=== PATIENT | female | born 1980 | race Caucasian/White ===

== ENCOUNTER 2017-01-06 19:22 | Emergency (ER) | payer MEDICARE, OTHER ==
[~2017-01-06] VITALS: Ht 172.7 cm; Wt 77.1 kg
[~2017-01-06 19:22] MED LIST: ACET325T21 PO; ASPI-482 PO; CARV12.52 PO; CIPR500T94 PO; CRESTOR10 MG PO; DIVA500T2 PO; ECON15CR TP; FERR-26 PO; FLUT16SP2 NS; GLIM4TAB2 PO; HYDR-2672 PO; HYDR-2678 PO; HYDR-971 PO; HYOS0.12 PO; INSU100I17 SQ; INSU100V8 SQ; LOSA1TAB16 PO; METR250T PO; MULT-246 PO; OLAN10TA3 PO; OMEG500C3 PO; OMEP40CA5 PO; ONDA4TAB7 PO; PANT40TA3 PO; SERT50TA PO; SILV400C TP; SUCR1TAB29 PO; ZOLP10TA PO
[2017-01-06] MEDS ORDERED: HYDROcodon/APAP 7.5/325MG ORAL 15 ML SOLUTION PO ONE (20:15)
[2017-01-06 20:18] VITALS: BP 146/90
--- NOTE | 2017-01-06 20:38 | PHYS DOC ---
Past Medical History Past Medical History: Depression, GERD, Other Additional Past Medical Histor: ulcer, diverticulosis, chronic abd pain Past Surgical History: Appendectomy, Cholecystectomy, Gastric Bypass, Other Additional Past Surgical Histo: hernia, ovarian cyst, low body lift, 3 abd laps , 2 peg tubes,reversal, PORT Alcohol Use: None Drug Use: Marijuana Adult General Chief Complaint Chief Complaint: MULTIPLE TRAUMA/FALL HPI HPI Patient is a 40 year old pleasant female who sustained a fall from standing while attempting to assist her mother move in her room. While in the standing position patient will shifting her mother's weight which she lost her footing landing on her left scapula upper shoulders and neck. Patient since that time his had some increased pain with movement at her neck over C5 C6 C7 C8 and the upper portion of her scapula on the right shoulder. Patient's reason for coming to the ER is that she was not able to tolerate her by mouth medications given the pain and a prior gastric bypass she has over sensitive gag reflex relatively vomited up her sublingual Zofran and her pain medications. She denies any numbness and teething to the upper extremities bilaterally denies any loss of consciousness after the fall. Denies any chest pain, shortness breath, abdominal pain, before after the fall. Patient's pain is described as a dull ache at about a 6 of 10 when at rest about an 8 of 10 with movements or direct pressure. Patient denies a prior injury to the same. Given patient's complaint and focal tenderness exhibited on physical exam I will complete x-rays of her C-spine and T-spine provided oral elixir pain medication and something for her nausea. Review of Systems Review of Systems Constitutional: Denies fever or chills [] Eyes: Denies change in visual acuity, redness, or eye pain [] HENT: Denies nasal congestion or sore throat [] Respiratory: Denies cough or shortness of breath [] Cardiovascular: No additional information not addressed in HPI [] GI: Abdominal pain with nausea and retching that is chronic in nature : Denies dysuria or hematuria [] Musculoskeletal: He does complain of upper neck and back pain over the right scapula Integument: Denies rash or skin lesions [] Neurologic: Denies headache, focal weakness or sensory changes [] Endocrine: Denies polyuria or polydipsia [] Current Medications Current Medications Current Medications Medications (Trade) Dose Ordered Sig/Ben Start Time Stop Time Status Last Admin Dose Admin Acetaminophen/ Hydrocodone Bitart (Lortab 7.5-325/ 15ml Oral Solution) 15 ml 1X ONCE 01/06/17 20:15 01/06/17 20:16 DC 01/06/17 20:16 15 ML Allergies Allergies Allergies Coded Allergies Type Severity Reaction Last Updated Verified diphenhydramine Allergy Severe hallucinations/ams 11/22/16 Yes promethazine Allergy Severe confusion/ams 11/22/16 Yes sumatriptan Allergy Severe ANAPHYLAXIS 11/22/16 Yes haloperidol Allergy Intermediate 11/23/16 Yes morphine Allergy Intermediate HIVES 12/04/16 Yes NSAIDS (Non-Steroidal Anti-Inflamma Adverse Reaction Severe bleeding. 06/12/14 Yes metoclopramide Adverse Reaction Mild 11/15/16 Yes prochlorperazine Adverse Reaction Mild 11/15/16 Yes Physical Exam Physical Exam Impression is hypertension noted on physical exam findings otherwise her vital signs within normal limits. Constitutional: Well developed, well nourished, patient in no apparent distress sitting quietly on the bed reading a nook HENT: Normocephalic, atraumatic, bilateral external ears normal, oropharynx moist, no oral exudates, nose normal. [] Eyes: PERRLA, EOMI, conjunctiva normal, no discharge. [] Neck: Normal range of motion, she does have tenderness to palpation over the midline of C7 C8 with no obvious deformity. Patient as much as felt pain over the lateral aspect of the right trap as well as rhomboid major minor and along the inferior medial portion border of the right scapula. There is mild soft tissue swelling no evidence of external pastor or hematoma. Cardiovascular:Heart rate regular rhythm, no murmur [] Lungs & Thorax: Bilateral breath sounds clear to auscultation [] Abdomen: Bowel sounds normal, soft, no tenderness, no masses, no pulsatile masses. [] Skin: Warm, dry, no erythema, no rash. [] Back: There is tenderness to palpation over the rhomboid major minor was mild soft tissue swelling no obvious hematoma or bony tenderness to palpation with crepitus. Extremities: No tenderness, no cyanosis, no clubbing, ROM intact, no edema. [] Neurologic: Alert and oriented X 3, normal motor function, normal sensory function, no focal deficits noted. [] Psychologic: Patient is a little anxious but normal cognition no focal neurologic deficits on upper extremity exam C5-T1 light touch proprioception intact over each arm bilaterally Current Patient Data Vital Signs Vital Signs Date Time Temp Pulse Resp B/P (MAP) Pulse Ox O2 Delivery O2 Flow Rate FiO2 01/06/17 20:16 16 01/06/17 19:43 98.2 84 155/56 (89) 100 Room Air 98.2 EKG EKG [] Radiology/Procedures Radiology/Procedures [] 3 view thoracic back films demonstrated no occult fracture no compression fracture no subcutaneous air or rib fracture noted. Read by Dr. Rodriguez time on x-rays aren't 205301/06/2017. Straight timed 205001/06/2017 3 view cervical spine series with adequate penetration to C6-C7 C8 demonstrates no occult fracture within the cervical spine alignment of the anterior portion spinous processes within normal limits. There is no compression fracture noted no thorax open mouth ODONTOID to within normal limits and lateral bodies place normal . Course & Med Decision Making Course & Med Decision Making Pertinent Labs and Imaging studies reviewed. (See chart for details) other course the ER evaluation patient was markedly better given pain medications and oral elixir and Zofran. X-rays reviewed by me discussed with patient no cold fractures.Patient tells me that their sumptoms given during CC are improved. We reviewed labs and radiology reports with patient Impression fall from standing upper shoulder/scapular/neck contusion and sprain. Disposition: Discharge home with PCP follow-up given oral pain medications and elixir form and given precautions [] Dragon Disclaimer Dragon Disclaimer This electronic medical record was generated, in whole or in part, using a voice recognition dictation system. Departure Departure Impression: Primary Impression: Chronic abdominal pain Additional Impressions: Nausea and vomiting Neck muscle strain Contusion of back wall of thorax Back contusion Contusion of right back wall of thorax Contusion of upper back Disposition: 01 HOME, SELF-CARE Condition: IMPROVED Referrals: RAJEEV SHAW DO (PCP) Patient Instructions: Contusion, Fall Prevention and Home Safety, Soft Tissue Injury of the Neck Additional Instructions: Please return for any new or increasing symptoms, if you have any focal neurologic deficits like weakness in her upper extremities decreased sensation or give any question concerns. I would advise a follow-up with her primary care doctor if her pain is not being managed by oral elixir provided to [facility]. Scripts Hydrocodone Bit/Acetaminophen (HYDROCODONE-APAP 7.5-325/15 SOLN ) 15 Ml Solution 15 ML PO PRN Q6HRS Y for PAIN, #120 ML 0 Refills Prov: REJI RODRIGUEZ MD 01/06/17 Problem Qualifiers REJI RODRIGUEZ MD Jan 06, 2017 20:38
[2017-01-06] MEDS ORDERED: HYDR15SO4 PO (21:15)
--- NOTE | 2017-01-07 07:45 | RAD ---
Thoracic spine, 3 views, 01/06/2017: History: Injury, pain There are slight concave endplate deformities at T8, most likely old. No definite acute fracture or dislocation is identified. The paraspinous soft tissues are unremarkable. A right Port-A-Cath extends into the superior vena cava. IMPRESSION: 1. Slight T8 vertebral endplate deformities which are likely old. 2. The thoracic spine is otherwise unremarkable. Cervical spine, 3 views, 01/06/2017: No fracture or dislocation is identified. The intervertebral disc spaces are well-maintained. The prevertebral soft tissues are unremarkable. IMPRESSION: No acute cervical spine abnormality is detected.
== END 2017-01-06 21:35 | disposition home or self-care (01) ==
LOC: EDBD → MERGE 19:22 → ER 19:22
DX: S16.1XXA Strain of muscle, fascia and tendon at neck level, initial encounter (principal); S20.221A Contusion of right back wall of thorax, initial encounter; G89.29 Other chronic pain; R10.9 Unspecified abdominal pain; R11.2 Nausea with vomiting, unspecified; F32.9 Major depressive disorder, single episode, unspecified; K21.9 Gastro-esophageal reflux disease without esophagitis; I10 Essential (primary) hypertension; F12.10 Cannabis abuse, uncomplicated; Z90.49 Acquired absence of other specified parts of digestive tract; Z98.84 Bariatric surgery status; Z88.8 Allergy status to other drugs, medicaments and biological substances; Z88.6 Allergy status to analgesic agent; Z88.5 Allergy status to narcotic agent; W18.39XA Other fall on same level, initial encounter; Y93.89 Activity, other specified; Y92.89 Other specified places as the place of occurrence of the external cause; Y99.8 Other external cause status
CPT/HCPCS: 72040; 72072; 99284

== ENCOUNTER 2017-01-08 12:42 | Emergency (ER) | payer OTHER, MEDICARE ==
[~2017-01-08] VITALS: Ht 172.7 cm; Wt 77.1 kg
[~2017-01-08 12:42] MED LIST changes: -HYDR-2672 PO; +HYDR-2766 PO; +HYDR15SO4 PO; -SUCR1TAB29 PO; +SUCR1TAB35 PO
[2017-01-08] MEDS ORDERED: fentaNYL PF VIAL 100 MCG/2 ML VIAL IV ONE ×2 (13:45→15:00)
[2017-01-08] MEDS ORDERED: IV NORMAL SALINE 1000ML BAG 1,000 ML IV ONE (13:45)
[2017-01-08] MEDS ORDERED: ONDANSETRON PF 4 MG/2 ML VIAL. IV ONE ×2 (13:45→14:45)
[2017-01-08 13:52] LABS: NEG OBC FOB NEG; POS OBC FOB POS
[2017-01-08 14:00] LABS: BASO % 1 % (0-3); EOS % 0 % (0-3); HEMATOCRIT 26.8 % (36.0-47.0); HEMOGLOBIN 8.6 g/dL (12.0-15.5); LYMPH # 0.6 x10^3/uL (1.0-4.8); LYMPH % 9 % (24-48); MEAN CORPUSCULAR HEMOGLOBIN 25 pg (25-35); MEAN CORPUSCULAR HGB CONC 32 g/dL (31-37); MEAN CORPUSCULAR VOLUME 78 fL (79-100); MONO % 5 % (0-9); NEUT % 85 % (31-73); PLATELET COUNT 289 x10^3/uL (140-400); RED BLOOD COUNT 3.43 x10^6/uL (3.50-5.40); RED CELL DISTRIBUTION WIDTH 20.5 % (11.5-14.5); WHITE BLOOD COUNT 6.3 x10^3/uL (4.0-11.0)
[2017-01-08 14:16] LABS: CALCIUM 8.8 mg/dL (8.5-10.1); CREATININE 0.6 mg/dL (0.6-1.0); GFR 112.5; POTASSIUM 3.4 mmol/L (3.5-5.1)
--- NOTE | 2017-01-08 14:29 | PHYS DOC ---
Past Medical History Past Medical History: Depression, GERD, Other Additional Past Medical Histor: ulcer, diverticulosis, chronic abd pain Past Surgical History: Cholecystectomy, Gastric Bypass, Other Additional Past Surgical Histo: hernia, ovarian cyst, low body lift, 3 abd laps , 2 peg tubes,reversal, PORT Alcohol Use: None Drug Use: Marijuana Social History Narrative: last use Saturday morning Adult General Chief Complaint Chief Complaint: ABDOMINAL PAIN HPI HPI Patient is a 36 year old female with complex abdominal history who presents with acute on chronic abdominal pain associated with acute on chronic bloody diarrhea x multiple, but it has stopped since coming here. States she has had multiple episodes of nonbloody nonbilious emesis with black flecks. Her symptoms started today. She has been taking NSAIDs for right shoulder pain after recent fall. She denies fever or chills, dysuria, hematuria, constipation , rectal pain. States she still does not have a GI clinic appointment although she does have money for her pill endoscopy now. Review of Systems Review of Systems Constitutional: Denies fever or chills [] Eyes: Denies change in visual acuity, redness, or eye pain [] HENT: Denies nasal congestion or sore throat [] Respiratory: Denies cough or shortness of breath [] Cardiovascular: No additional information not addressed in HPI [] GI: Has abdominal pain, nausea, vomiting, and bloody stools [] : Denies dysuria or hematuria [] Musculoskeletal: Denies back pain or joint pain [] Integument: Denies rash or skin lesions [] Neurologic: Denies headache, focal weakness or sensory changes [] Endocrine: Denies polyuria or polydipsia [] Current Medications Current Medications Current Medications Medications (Trade) Dose Ordered Sig/Ben Start Time Stop Time Status Last Admin Dose Admin Fentanyl Citrate (Fentanyl 2ml Vial) 75 mcg 1X ONCE 01/08/17 15:00 01/08/17 15:01 DC 01/08/17 14:52 75 MCG Heparin Sodium (Porcine) (Hep Lock Adult) 300 unit 1X ONCE 01/08/17 15:30 01/08/17 15:31 Ondansetron HCl (Zofran) 4 mg 1X ONCE 01/08/17 14:45 01/08/17 14:46 DC 01/08/17 14:52 4 MG Sodium Chloride 1,000 ml @ 1,000 mls/hr 1X ONCE 01/08/17 13:45 01/08/17 14:44 DC 01/08/17 13:50 1,000 MLS/HR Allergies Allergies Allergies Coded Allergies Type Severity Reaction Last Updated Verified diphenhydramine Allergy Severe hallucinations/ams 01/07/17 Yes promethazine Allergy Severe confusion/ams 01/07/17 Yes sumatriptan Allergy Severe ANAPHYLAXIS 01/07/17 Yes haloperidol Allergy Intermediate 01/07/17 Yes morphine Allergy Intermediate HIVES 01/07/17 Yes NSAIDS (Non-Steroidal Anti-Inflamma Adverse Reaction Severe bleeding. 01/07/17 Yes metoclopramide Adverse Reaction Mild 01/07/17 Yes prochlorperazine Adverse Reaction Mild 01/07/17 Yes Physical Exam Physical Exam Constitutional: Well developed, well nourished, no acute distress, non-toxic appearance. [] HENT: Normocephalic, atraumatic, bilateral external ears normal, oropharynx moist, nose normal. [] Eyes: PERRLA, EOMI. [] Neck: Normal range of motion, supple. [] Cardiovascular: Heart rate regular rhythm [] Lungs & Thorax: Bilateral breath sounds clear to auscultation [] Abdomen: Bowel sounds normal, soft, moderate epigastric abdominal tenderness. [ ] Skin: Warm, dry, no erythema, no rash. [] Back: Normal ROM. [] Extremities: No tenderness, ROM intact, no edema. [] Neurologic: Alert and oriented X 3, normal motor function, normal sensory function, no focal deficits noted. [] Psychologic: Affect normal, judgement normal, mood normal. [] Current Patient Data Vital Signs Vital Signs Date Time Temp Pulse Resp B/P (MAP) Pulse Ox O2 Delivery O2 Flow Rate FiO2 01/08/17 14:52 16 99 Room Air 01/08/17 12:52 98.4 93 153/75 (101) 98.4 Lab Values Laboratory Tests Test 01/08/17 13:30 01/08/17 13:50 Stool Occult Blood Positive (NEG) White Blood Count 6.3 x10^3/uL (4.0-11.0) Red Blood Count 3.43 x10^6/uL (3.50-5.40) L Hemoglobin 8.6 g/dL (12.0-15.5) L Hematocrit 26.8 % (36.0-47.0) L Mean Corpuscular Volume 78 fL (79-100) L Mean Corpuscular Hemoglobin 25 pg (25-35) Mean Corpuscular Hemoglobin Concent 32 g/dL (31-37) Red Cell Distribution Width 20.5 % (11.5-14.5) H Platelet Count 289 x10^3/uL (140-400) Neutrophils (%) (Auto) 85 % (31-73) H Lymphocytes (%) (Auto) 9 % (24-48) L Monocytes (%) (Auto) 5 % (0-9) Eosinophils (%) (Auto) 0 % (0-3) Basophils (%) (Auto) 1 % (0-3) Neutrophils # (Auto) 5.3 x10^3uL (1.8-7.7) Lymphocytes # (Auto) 0.6 x10^3/uL (1.0-4.8) L Monocytes # (Auto) 0.3 x10^3/uL (0.0-1.1) Eosinophils # (Auto) 0.0 x10^3/uL (0.0-0.7) Basophils # (Auto) 0.0 x10^3/uL (0.0-0.2) Platelet Estimate Adequate (ADEQUATE) Hypochromasia Slight Basophilic Stippling Present Anisocytosis Mod Ovalocytes Few Sodium Level 141 mmol/L (136-145) Potassium Level 3.4 mmol/L (3.5-5.1) L Chloride Level 106 mmol/L (98-107) Carbon Dioxide Level 26 mmol/L (21-32) Anion Gap 9 (6-14) Blood Urea Nitrogen 8 mg/dL (7-20) Creatinine 0.6 mg/dL (0.6-1.0) Estimated GFR (Cockcroft-Gault) 112.5 Glucose Level 107 mg/dL (70-99) H Calcium Level 8.8 mg/dL (8.5-10.1) Laboratory Tests 01/08/17 13:50 Laboratory Tests 01/08/17 13:50 Course & Med Decision Making Course & Med Decision Making Pertinent Labs and Imaging studies reviewed. (See chart for details) Positive fecal occult; otherwise nonacute laboratory evaluation. No further episodes of bloody stools while here. Offered admission for acute on chronic GI bleeding, but she prefers to follow up with GI clinic. Nausea and pain improved. She is tolerating oral intake. Return precautions given. She understands and agrees with plan. Dragon Disclaimer Dragon Disclaimer This electronic medical record was generated, in whole or in part, using a voice recognition dictation system. Departure Departure Impression: Primary Impression: Abdominal pain Additional Impression: GI (gastrointestinal bleed) Disposition: HOME, SELF-CARE Condition: STABLE Referrals: RAJEEV SHAW DO (PCP) LEONEL BEAN MD Patient Instructions: Gastrointestinal Bleeding, [id number] Additional Instructions: Take zofran as needed for nausea. Avoid NSAIDs. Follow up with GI clinic. Please call for appointment. Return for any concerns. Scripts Ondansetron (ZOFRAN ODT) 4 Mg Tab.rapdis 1 TAB SL Q8HRS Y for NAUSEA, #10 TAB Prov: Mirella ORDOÑEZ MD 01/08/17 Problem Qualifiers Primary Impression: Abdominal pain Abdominal location: epigastric Qualified Codes: R10.13 - Epigastric pain Additional Impression: GI (gastrointestinal bleed) GI bleed type/associated pathology: unspecified gastrointestinal hemorrhage type Qualified Codes: K92.2 - Gastrointestinal hemorrhage, unspecified Mirella ORDOÑEZ MD Jan 08, 2017 14:29
[2017-01-08] MEDS ORDERED: ONDA4TAB10 SL (14:52)
[2017-01-08 14:54] LABS: ANISOCYTOSIS MOD; HYPOCHROMIA SLIGHT; OVALOCYTES FEW; PLT ESTIMATE ADEQUATE (ADEQUATE)
[2017-01-08 15:21] VITALS: BP 131/78
[2017-01-08] MEDS ORDERED: HEPARIN PF 500 UNIT/5 ML DISP.SYRIN. IV ONE (15:30)
== END 2017-01-08 15:35 | disposition home or self-care (01) ==
LOC: ER 12:42
DX: K92.2 Gastrointestinal hemorrhage, unspecified (principal); K21.9 Gastro-esophageal reflux disease without esophagitis; G89.29 Other chronic pain; Z90.49 Acquired absence of other specified parts of digestive tract; F12.10 Cannabis abuse, uncomplicated; Z87.19 Personal history of other diseases of the digestive system; Z88.5 Allergy status to narcotic agent; Z88.8 Allergy status to other drugs, medicaments and biological substances
CPT/HCPCS: 36415; 80048; 82274; 85007; 85027; 96361; 96374; 96375; 96376; 99284; J2405; J3010; J7030

== ENCOUNTER 2017-01-23 14:15 | Emergency (ER) | payer MEDICARE, OTHER ==
[~2017-01-23] VITALS: Ht 172.7 cm; Wt 77.1 kg
[~2017-01-23 14:15] MED LIST changes: +ONDA4TAB10 SL
[2017-01-23 14:25] VITALS: BP 133/85
--- NOTE | 2017-01-23 14:36 | PHYS DOC ---
Past Medical History Past Medical History: Depression, GERD, Other Additional Past Medical Histor: ulcer, diverticulosis, chronic abd pain Past Surgical History: Cholecystectomy, Gastric Bypass, Other Additional Past Surgical Histo: hernia, ovarian cyst, low body lift, 3 abd laps , 2 peg tubes,reversal, PORT Alcohol Use: None Drug Use: Marijuana Adult General Chief Complaint Chief Complaint: SHOULDER INJURY HPI HPI Patient is a 36 year old female with history of acid reflex and depression who presents today with moderate right shoulder pain that began early this morning after lifting the mother during a transfer. 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 Patient denies falling. Patient states the pain is worse on movement of the right shoulder. Review of Systems Review of Systems Constitutional: Denies fever or chills [] Eyes: Denies change in visual acuity, redness, or eye pain [] Musculoskeletal: Right shoulder pain Integument: Denies rash or skin lesions [] Neurologic: Denies headache, focal weakness or sensory changes [] Endocrine: Denies polyuria or polydipsia [] Current Medications Current Medications Current Medications Medications (Trade) Dose Ordered Sig/Ben Start Time Stop Time Status Last Admin Dose Admin Acetaminophen/ Hydrocodone Bitart (Lortab 5/325) 1 tab 1X ONCE 01/23/17 14:45 01/23/17 14:46 DC 01/23/17 14:52 1 TAB Cyclobenzaprine HCl (Flexeril) 10 mg 1X ONCE 01/23/17 14:45 01/23/17 14:46 DC 01/23/17 14:53 10 MG Allergies Allergies Allergies Coded Allergies Type Severity Reaction Last Updated Verified diphenhydramine Allergy Severe hallucinations/ams 01/07/17 Yes promethazine Allergy Severe confusion/ams 01/07/17 Yes sumatriptan Allergy Severe ANAPHYLAXIS 01/07/17 Yes haloperidol Allergy Intermediate 01/07/17 Yes morphine Allergy Intermediate HIVES 01/07/17 Yes NSAIDS (Non-Steroidal Anti-Inflamma Adverse Reaction Severe bleeding. 01/07/17 Yes metoclopramide Adverse Reaction Intermediate 01/07/17 Yes prochlorperazine Adverse Reaction Intermediate 01/07/17 Yes Physical Exam Physical Exam Constitutional: Well developed, well nourished, no acute distress, non-toxic appearance. [] HENT: Normocephalic, atraumatic, bilateral external ears normal, oropharynx moist, no oral exudates, nose normal. [] Eyes: PERRLA, EOMI, conjunctiva normal, no discharge. [] Skin: Warm, dry, no erythema, no rash. [] Back: No tenderness, no CVA tenderness. [] Extremities: Right shoulder with no obvious deformity. Tenderness around the scapula of the right shoulder during exam. Full range of motion to the right shoulder including abduction and adduction of the right upper extremity. Adequate plantar flexion and dorsiflexion of the right forearm. +2 right radial pulse. Cap refill less than 2 seconds the right upper extremity. Sensation intact to the right upper extremity. Neurologic: Alert and oriented X 3, normal motor function, normal sensory function, no focal deficits noted. [] Psychologic: Affect normal, judgement normal, mood normal. [] Current Patient Data Vital Signs Vital Signs Date Time Temp Pulse Resp B/P (MAP) Pulse Ox O2 Delivery O2 Flow Rate FiO2 01/23/17 14:52 16 100 Room Air 01/23/17 14:25 98.9 102 98.9 EKG EKG [] Radiology/Procedures Radiology/Procedures [] Course & Med Decision Making Course & Med Decision Making Pertinent Labs and Imaging studies reviewed. (See chart for details) Patient is in the ED with a shoulder strain after lifting the mother. 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 Right shoulder x-ray interpreted by radiologist are negative for any acute findings. Patient was discharged with instructions to follow-up with orthopedic doctor which we provided. Ice pack in the ED. Dragon Disclaimer Dragon Disclaimer This electronic medical record was generated, in whole or in part, using a voice recognition dictation system. Departure Departure Impression: Primary Impression: Right shoulder strain Disposition: 01 HOME, SELF-CARE Condition: STABLE Referrals: RAJEEV SHAW DO (PCP) GALEN ZAFAR MD Follow-up in one week if pain continues Patient Instructions: Muscle Strain Additional Instructions: You were seen for right shoulder strain. Ice and elevate the extremity. Follow- up with orthopedic doctor provided in 1-2 weeks or your own doctor if pain continues. Scripts Cyclobenzaprine Hcl (CYCLOBENZAPRINE HCL) 10 Mg Tablet 1 TAB PO TID, #30 TAB Prov: DAVID SERRANO PEDIATRIC NURSE 01/23/17 Hydrocodone/Apap 5-325 (NORCO 5-325 TABLET) 1 Each Tablet 1-2 TAB PO Q4-6HRS Y for PAIN, #8 TAB Prov: DAVID SERRANO APRN 01/23/17 Problem Qualifiers Primary Impression: Right shoulder strain Encounter type: initial encounter Qualified Codes: S46.911A - Strain of unspecified muscle, fascia and tendon at shoulder and upper arm level, right arm , initial encounter DAVID SERRANO APRN Jan 23, 2017 14:36
[2017-01-23] MEDS ORDERED: HYDROcodone/APAP 5/325MG 1 TAB TABLET PO ONE (14:45)
[2017-01-23] MEDS ORDERED: CYCLOBENZAPRINE 10 MG TABLET. PO ONE (14:45)
--- NOTE | 2017-01-23 14:46 | RAD ---
Right shoulder, 3 views, 01/23/2017: History: Shoulder pain, injury No fracture or dislocation is identified. The periarticular soft tissues are unremarkable. A Port-A-Cath is projected over the right upper chest. IMPRESSION: No acute right shoulder abnormality is detected.
[2017-01-23] MEDS ORDERED: HYDR-971 PO (15:04)
[2017-01-23] MEDS ORDERED: CYCL10TA2 PO (15:04)
== END 2017-01-23 15:10 | disposition home or self-care (01) ==
LOC: EDBD 14:15 → ER 14:15
DX: S46.911A Strain of unspecified muscle, fascia and tendon at shoulder and upper arm level, right arm, initial encounter (principal); F32.9 Major depressive disorder, single episode, unspecified; K21.9 Gastro-esophageal reflux disease without esophagitis; F12.10 Cannabis abuse, uncomplicated; Z90.49 Acquired absence of other specified parts of digestive tract; Z98.84 Bariatric surgery status; Z88.5 Allergy status to narcotic agent; Z88.8 Allergy status to other drugs, medicaments and biological substances; X50.9XXA Other and unspecified overexertion or strenuous movements or postures, initial encounter; Y93.F2 Activity, caregiving, lifting; Y92.89 Other specified places as the place of occurrence of the external cause; Y99.8 Other external cause status
CPT/HCPCS: 73030; 99284

== ENCOUNTER 2017-02-01 08:48 | Emergency (ER) | payer OTHER, MEDICARE ==
[~2017-02-01] VITALS: Ht 172.7 cm; Wt 74.8 kg
[~2017-02-01 08:48] MED LIST changes: +CYCL10TA2 PO
--- NOTE | 2017-02-01 08:56 | PHYS DOC ---
Past Medical History Past Medical History: Depression, GERD, Other Additional Past Medical Histor: ulcer, diverticulosis, chronic abd pain Past Surgical History: Cholecystectomy, Gastric Bypass, Other Additional Past Surgical Histo: hernia, ovarian cyst, low body lift, 3 abd laps , 2 peg tubes,reversal, PORT Alcohol Use: None Drug Use: Marijuana Adult General Chief Complaint Chief Complaint: BLOODY STOOL HPI HPI Patient is a 40 year old female who presents with 2 days of nausea and addition to red blood per rectum. She states that she's been very stressed out because of her mom and getting her into a [facility] facility. She states she's been having a lot of loose stools with small amounts of them since 3 AM this morning he is had approximately 9 small bowel movements. She's been having some bright red blood. She was concerned because she's been transfused several times in the past. She states her abdominal pains in the left lower quadrant suprapubic area and this is her normal discomfort that she has some time to time. She states that she was more concerned about her bright red blood than anything else. She is feeling better now that she's got some IV fluids and pain meds. Review of Systems Review of Systems Constitutional: Denies fever or chills [] Eyes: Denies change in visual acuity, redness, or eye pain [] HENT: Denies nasal congestion or sore throat [] Respiratory: Denies cough or shortness of breath [] Cardiovascular: No additional information not addressed in HPI [] GI: Positive for abdominal pain, nausea, bloody stools, denies any vomiting,[] : Denies dysuria or hematuria [] Musculoskeletal: Denies back pain or joint pain [] Integument: Denies rash or skin lesions [] Neurologic: Denies headache, focal weakness or sensory changes [] Endocrine: Denies polyuria or polydipsia [] Current Medications Current Medications Current Medications Medications (Trade) Dose Ordered Sig/Ben Start Time Stop Time Status Last Admin Dose Admin Hydromorphone HCl (Dilaudid) 1 mg PRN Q15MIN PRN 02/01/17 09:15 02/02/17 09:14 02/01/17 12:09 1 MG Ondansetron HCl (Zofran) 4 mg 1X ONCE 02/01/17 09:15 02/01/17 09:16 DC 02/01/17 10:31 4 MG Sodium Chloride 1,000 ml @ 1,000 mls/hr Q1H 02/01/17 09:06 02/01/17 10:05 DC 02/01/17 10:31 1,000 MLS/HR Allergies Allergies Allergies Coded Allergies Type Severity Reaction Last Updated Verified diphenhydramine Allergy Severe hallucinations/ams 01/07/17 Yes promethazine Allergy Severe confusion/ams 01/07/17 Yes sumatriptan Allergy Severe ANAPHYLAXIS 01/07/17 Yes haloperidol Allergy Intermediate 01/07/17 Yes morphine Allergy Intermediate HIVES 01/07/17 Yes NSAIDS (Non-Steroidal Anti-Inflamma Adverse Reaction Severe bleeding. 01/07/17 Yes metoclopramide Adverse Reaction Intermediate 01/07/17 Yes prochlorperazine Adverse Reaction Intermediate 01/07/17 Yes Physical Exam Physical Exam Constitutional: Well developed, well nourished, no acute distress, non-toxic appearance. [] HENT: Normocephalic, atraumatic, bilateral external ears normal, oropharynx moist, no oral exudates, nose normal. [] Eyes: PERRLA, EOMI, conjunctiva normal, no discharge. [] Neck: Normal range of motion, no tenderness, supple, no stridor. [] Cardiovascular:Heart rate regular rhythm, no murmur [] Lungs & Thorax: Bilateral breath sounds clear to auscultation [] Abdomen: Bowel sounds normal, soft, no tenderness, no masses, no pulsatile masses. [] Skin: Warm, dry, no erythema, no rash. [] Back: No tenderness, no CVA tenderness. [] Extremities: No tenderness, no cyanosis, no clubbing, ROM intact, no edema. [] Neurologic: Alert and oriented X 3, normal motor function, normal sensory function, no focal deficits noted. [] Psychologic: Affect normal, judgement normal, mood normal. [] Current Patient Data Vital Signs Vital Signs Date Time Temp Pulse Resp B/P (MAP) Pulse Ox O2 Delivery O2 Flow Rate FiO2 02/01/17 12:00 67 18 120/76 (91) 99 Room Air 02/01/17 09:02 98.3 98.3 Lab Values Laboratory Tests Test 02/01/17 10:19 02/01/17 10:30 02/01/17 11:44 White Blood Count 6.2 x10^3/uL (4.0-11.0) Red Blood Count 4.35 x10^6/uL (3.50-5.40) Hemoglobin 11.3 g/dL (12.0-15.5) L Hematocrit 34.0 % (36.0-47.0) L Mean Corpuscular Volume 78 fL (79-100) L Mean Corpuscular Hemoglobin 26 pg (25-35) Mean Corpuscular Hemoglobin Concent 33 g/dL (31-37) Red Cell Distribution Width 21.0 % (11.5-14.5) H Platelet Count 406 x10^3/uL (140-400) H Neutrophils (%) (Auto) 84 % (31-73) H Lymphocytes (%) (Auto) 10 % (24-48) L Monocytes (%) (Auto) 5 % (0-9) Eosinophils (%) (Auto) 1 % (0-3) Basophils (%) (Auto) 1 % (0-3) Neutrophils # (Auto) 5.2 x10^3uL (1.8-7.7) Lymphocytes # (Auto) 0.6 x10^3/uL (1.0-4.8) L Monocytes # (Auto) 0.3 x10^3/uL (0.0-1.1) Eosinophils # (Auto) 0.0 x10^3/uL (0.0-0.7) Basophils # (Auto) 0.0 x10^3/uL (0.0-0.2) Platelet Estimate Increased (ADEQUATE) Anisocytosis Present Microcytosis Slight Ovalocytes Few Prothrombin Time 12.5 SEC (11.7-14.0) Prothrombin Time INR 1.0 (0.8-1.1) PTT 29 SEC (24-38) Sodium Level 139 mmol/L (136-145) Potassium Level 4.3 mmol/L (3.5-5.1) Chloride Level 103 mmol/L (98-107) Carbon Dioxide Level 25 mmol/L (21-32) Anion Gap 11 (6-14) Blood Urea Nitrogen 9 mg/dL (7-20) Creatinine 0.6 mg/dL (0.6-1.0) Estimated GFR (Cockcroft-Gault) 110.2 Glucose Level 103 mg/dL (70-99) H Calcium Level 9.3 mg/dL (8.5-10.1) Total Bilirubin 0.3 mg/dL (0.2-1.0) Direct Bilirubin < 0.1 mg/dL (0.0-0.2) Aspartate Amino Transferase (AST) 24 U/L (15-37) Alanine Aminotransferase (ALT) 22 U/L (14-59) Alkaline Phosphatase 87 U/L (46-116) Creatine Kinase 67 U/L (26-192) Creatine Kinase MB (Mass) < 0.5 ng/mL (0.0-3.6) Creatine Kinase MB Relative Index % (0-4) Total Protein 7.9 g/dL (6.4-8.2) Albumin 4.1 g/dL (3.4-5.0) Lipase 67 U/L (73-393) L Serum Test, Qualitative Negative (NEG) Urine Collection Type Unknown Urine Color Yellow Urine Clarity Clear Urine pH 7.0 Urine Specific [place] <=1.005 Urine Protein Negative mg/dL (NEG-TRACE) Urine Glucose (UA) Negative mg/dL (NEG) Urine Ketones (Stick) Negative mg/dL (NEG) Urine Blood Negative (NEG) Urine Nitrite Negative (NEG) Urine Bilirubin Negative (NEG) Urine Urobilinogen Dipstick 0.2 mg/dL (0.2 mg/dL) Urine Leukocyte Esterase Negative (NEG) Urine RBC 0 /HPF (0-2) Urine WBC 0 /HPF (0-4) Urine Squamous Epithelial Cells Occ /LPF Urine Bacteria 0 /HPF (0-FEW) Urine Opiates Screen Neg (NEG) Urine Methadone Screen Neg (NEG) Urine Barbiturates Neg (NEG) Urine Phencyclidine Screen Neg (NEG) Urine Amphetamine/Methamphetamine Neg (NEG) Urine Benzodiazepines Screen Neg (NEG) Urine Cocaine Screen Neg (NEG) Urine Cannabinoids Screen Pos (NEG) Urine Ethyl Alcohol Neg (NEG) Stool Occult Blood Positive (NEG) Laboratory Tests 02/01/17 10:19 Laboratory Tests 02/01/17 10:19 EKG EKG [] Radiology/Procedures Radiology/Procedures [] Impressions: Abdominal pain Rectal Bleeding Course & Med Decision Making Course & Med Decision Making Pertinent Labs and Imaging studies reviewed. (See chart for details) Patient was evaluated for her chronic abdominal pain and chronic rectal bleeding. She states she had a small bowel movement with just a little bit of blood in the ER. Her pain has subsided with Zofran, Dilaudid, IV fluids. She is in stable condition be discharged home. Return precautions given she is agreeable to the plan and being discharged in stable condition. Dragon Disclaimer Dragon Disclaimer This electronic medical record was generated, in whole or in part, using a voice recognition dictation system. Departure Departure Impression: Primary Impression: Abdominal pain Disposition: HOME, SELF-CARE Condition: STABLE Referrals: RAJEEV SHAW DO (PCP) Patient Instructions: Abdominal Pain Additional Instructions: Being discharged home. Please follow-up with her primary care physician and GI doctor. Return ER for severe pain or other concerns. Problem Qualifiers Primary Impression: Abdominal pain Abdominal location: generalized Qualified Codes: R10.84 - Generalized abdominal pain DEENA JARVIS MD Feb 01, 2017 08:56
[2017-02-01] MEDS ORDERED: IV NORMAL SALINE 1000ML BAG 1,000 ML IV SCH (09:06)
[2017-02-01] MEDS ORDERED: ONDANSETRON PF 4 MG/2 ML VIAL. IV ONE (09:15)
[2017-02-01 10:30] LABS: BASO % 1 % (0-3); EOS % 1 % (0-3); HEMOGLOBIN 11.3 g/dL (12.0-15.5); LYMPH # 0.6 x10^3/uL (1.0-4.8); LYMPH % 10 % (24-48); MEAN CORPUSCULAR HEMOGLOBIN 26 pg (25-35); MEAN CORPUSCULAR HGB CONC 33 g/dL (31-37); MEAN CORPUSCULAR VOLUME 78 fL (79-100); MONO % 5 % (0-9); NEUT % 84 % (31-73); PLATELET COUNT 406 x10^3/uL (140-400); RED BLOOD COUNT 4.35 x10^6/uL (3.50-5.40); WHITE BLOOD COUNT 6.2 x10^3/uL (4.0-11.0)
[2017-02-01] MEDS: HYDROmorphone 2 MG/ML VIAL IV/SQ PRN ×4 (10:30→13:00)
[2017-02-01 10:46] LABS: BILIRUBIN,URINE NEGATIVE (NEG); GLUCOSE,URINE NEGATIVE (NEG); NITRITE,URINE NEGATIVE (NEG); PROTEIN,URINE NEGATIVE (NEG-TRACE); UROBILINOGEN,URINE 0.2 mg/dL (0.2 mg/dL)
[2017-02-01 10:49] LABS: NEG OBC SER NEG; POS OBC SER POS
[2017-02-01 10:55] LABS: ANION GAP 11 (6-14); BLOOD UREA NITROGEN 9 mg/dL (7-20); CALCIUM 9.3 mg/dL (8.5-10.1); CARBON DIOXIDE 25 mmol/L (21-32); CHLORIDE 103 mmol/L (98-107); CREATININE 0.6 mg/dL (0.6-1.0); GFR 110.2; GLUCOSE 103 mg/dL (70-99); POTASSIUM 4.3 mmol/L (3.5-5.1); SODIUM 139 mmol/L (136-145)
[2017-02-01 11:00] LABS: PROTHROMBIN TIME PATIENT 12.5 SEC (11.7-14.0)
[2017-02-01 11:01] LABS: ALBUMIN 4.1 g/dL (3.4-5.0); ALK PHOS 87 U/L (46-116); ALT (SGPT) 22 U/L (14-59); AST (SGOT) 24 U/L (15-37); DIRECT BILIRUBIN < 0.1 mg/dL (0.0-0.2); TOTAL BILIRUBIN 0.3 mg/dL (0.2-1.0); TOTAL PROTEIN 7.9 g/dL (6.4-8.2)
[2017-02-01 11:04] LABS: BARBITURATES NEG (NEG); BENZODIAZEPINES NEG (NEG); CANNABINOIDS POS (NEG); COCAINE NEG (NEG); METHADONE NEG (NEG); OPIATES NEG (NEG); PHENCYCLIDINE NEG (NEG); SQUAMOUS EPITHELIAL CELL,UR OCC /LPF
[2017-02-01 11:05] LABS: BACTERIA,URINE 0 /HPF (0-FEW); RBC,URINE 0 /HPF (0-2); WBC,URINE 0 /HPF (0-4)
[2017-02-01 11:08] LABS: CKMB MASS < 0.5 ng/mL (0.0-3.6); CREATINE KINASE 67 U/L (26-192)
[2017-02-01 11:42] LABS: ANISOCYTOSIS PRESENT; MICROCYTOSIS SLIGHT; OVALOCYTES FEW; PLT ESTIMATE INCREASED (ADEQUATE)
[2017-02-01 11:58] LABS: NEG OBC FOB NEG; POS OBC FOB POS
[2017-02-01 13:07] VITALS: BP 118/74
== END 2017-02-01 13:12 | disposition home or self-care (01) ==
LOC: ER 08:48
DX: R10.84 Generalized abdominal pain (principal); R10.32 Left lower quadrant pain; K62.5 Hemorrhage of anus and rectum; G89.29 Other chronic pain; R11.0 Nausea; F32.9 Major depressive disorder, single episode, unspecified; K21.9 Gastro-esophageal reflux disease without esophagitis; F12.10 Cannabis abuse, uncomplicated; Z88.6 Allergy status to analgesic agent; Z88.5 Allergy status to narcotic agent; Z88.8 Allergy status to other drugs, medicaments and biological substances; Z90.49 Acquired absence of other specified parts of digestive tract; Z98.84 Bariatric surgery status
CPT/HCPCS: 36415; 80048; 80076; 80305; 80320; 81001; 82274; 82553; 83690; 84703; 85007; 85027; 85610; 85730; 96361; 96374; 96375; 96376; 99285; J1170; J2405; J7030; G0481

== ENCOUNTER 2017-02-15 11:40 | Emergency (ER) | payer OTHER, MEDICARE ==
[~2017-02-15] VITALS: Ht 172.7 cm; Wt 77.1 kg
[2017-02-15] MEDS ORDERED: HYDROmorphone 2 MG/ML VIAL IV ONE ×2 (13:00→14:45)
[2017-02-15] MEDS ORDERED: IV NORMAL SALINE 1000ML BAG 1,000 ML IV ONE (13:00)
[2017-02-15] MEDS ORDERED: FAMOTIDINE 20 MG/2 ML VIAL IVP ONE (13:00)
[2017-02-15] MEDS ORDERED: ONDANSETRON PF 4 MG/2 ML VIAL. IV ONE ×2 (13:00→14:45)
[2017-02-15 13:51] LABS: BASO # 0.1 x10^3/uL (0.0-0.2); BASO % 1 % (0-3); EOS % 0 % (0-3); HEMATOCRIT 34.5 % (36.0-47.0); HEMOGLOBIN 11.2 g/dL (12.0-15.5); LYMPH # 0.7 x10^3/uL (1.0-4.8); LYMPH % 9 % (24-48); MEAN CORPUSCULAR HEMOGLOBIN 26 pg (25-35); MEAN CORPUSCULAR HGB CONC 32 g/dL (31-37); MEAN CORPUSCULAR VOLUME 79 fL (79-100); MONO % 6 % (0-9); NEUT % 84 % (31-73); PLATELET COUNT 302 x10^3/uL (140-400); RED BLOOD COUNT 4.35 x10^6/uL (3.50-5.40); RED CELL DISTRIBUTION WIDTH 19.2 % (11.5-14.5); WHITE BLOOD COUNT 7.4 x10^3/uL (4.0-11.0)
[2017-02-15 13:59] LABS: BILIRUBIN,URINE NEGATIVE (NEG); GLUCOSE,URINE NEGATIVE (NEG); NITRITE,URINE NEGATIVE (NEG); PH,URINE 7.5; PROTEIN,URINE NEGATIVE (NEG-TRACE); UROBILINOGEN,URINE 0.2 mg/dL (0.2 mg/dL)
[2017-02-15 14:04] LABS: CREATININE 0.6 mg/dL (0.6-1.0); GFR 110.2
[2017-02-15 14:09] LABS: ALBUMIN 4.1 g/dL (3.4-5.0); ALBUMIN/GLOBULIN RATIO 1.1 (1.0-1.7); TOTAL BILIRUBIN 0.3 mg/dL (0.2-1.0); TOTAL PROTEIN 7.7 g/dL (6.4-8.2)
[2017-02-15 14:10] LABS: BACTERIA,URINE FEW /HPF (0-FEW); RBC,URINE 0 /HPF (0-2); WBC,URINE RARE /HPF (0-4)
[2017-02-15 14:11] LABS: SQUAMOUS EPITHELIAL CELL,UR MOD /LPF
[2017-02-15 14:27] LABS: NEG OBC FOB NEG; POS OBC FOB POS
--- NOTE | 2017-02-15 14:38 | PHYS DOC ---
Past Medical History Past Medical History: Depression, GERD, Other Additional Past Medical Histor: ulcer, diverticulosis, chronic abd pain Past Surgical History: Cholecystectomy, Gastric Bypass, Other Additional Past Surgical Histo: hernia, ovarian cyst, low body lift, 3 abd laps , 2 peg tubes,reversal, PORT Additional Information: 1/2 PACK CIGS/DAY Alcohol Use: None Drug Use: Marijuana Adult General Chief Complaint Chief Complaint: ABDOMINAL PAIN HPI HPI Patient is a 40 year old female with history of chronic abdominal pain, chronic nausea and vomiting due to gastroparesis chronic rectal bleed, cholecystectomy, appendectomy who presents today with exacerbation of chronic midepigastric abdominal pain radiating to the right upper quadrant that began last night with multiple episodes of vomiting. Patient is also complaining of rectal bleeding. Patient denies any fever. Patient states she is going through a lot of stress with family issues at home including taking care of her mother but everything is getting better. Patient states she has an appointment with Dr. Paolo WAGNER on Saturday. Review of Systems Review of Systems Constitutional: Denies fever or chills [] Eyes: Denies change in visual acuity, redness, or eye pain [] HENT: Denies nasal congestion or sore throat [] Respiratory: Denies cough or shortness of breath [] Cardiovascular: No additional information not addressed in HPI [] GI: chronic abdominal pain, nausea, vomiting, chronic rectal pain : Denies dysuria or hematuria [] Musculoskeletal: Denies back pain or joint pain [] Integument: Denies rash or skin lesions [] Neurologic: Denies headache, focal weakness or sensory changes [] Endocrine: Denies polyuria or polydipsia [] Current Medications Current Medications Current Medications Medications (Trade) Dose Ordered Sig/Ben Start Time Stop Time Status Last Admin Dose Admin Famotidine (Pepcid) 20 mg 1X ONCE 02/15/17 13:00 02/15/17 13:01 DC 02/15/17 13:48 20 MG Hydromorphone HCl (Dilaudid) 1 mg 1X ONCE 02/15/17 14:45 02/15/17 14:46 DC 02/15/17 15:08 1 MG Ondansetron HCl (Zofran) 4 mg 1X ONCE 02/15/17 14:45 02/15/17 14:46 DC 02/15/17 15:07 4 MG Sodium Chloride 1,000 ml @ 1,000 mls/hr 1X ONCE 02/15/17 13:00 02/15/17 13:59 DC 02/15/17 13:49 1,000 MLS/HR Allergies Allergies Allergies Coded Allergies Type Severity Reaction Last Updated Verified diphenhydramine Allergy Severe hallucinations/ams 01/07/17 Yes promethazine Allergy Severe confusion/ams 01/07/17 Yes sumatriptan Allergy Severe ANAPHYLAXIS 01/07/17 Yes haloperidol Allergy Intermediate 01/07/17 Yes morphine Allergy Intermediate HIVES 01/07/17 Yes NSAIDS (Non-Steroidal Anti-Inflamma Adverse Reaction Severe bleeding. 01/07/17 Yes metoclopramide Adverse Reaction Intermediate 01/07/17 Yes prochlorperazine Adverse Reaction Intermediate 01/07/17 Yes Physical Exam Physical Exam Constitutional: Well developed, well nourished, no acute distress, non-toxic appearance. [] HENT: Normocephalic, atraumatic, bilateral external ears normal, oropharynx moist, no oral exudates, nose normal. [] Eyes: PERRLA, EOMI, conjunctiva normal, no discharge. [] Neck: Normal range of motion, no tenderness, supple, no stridor. [] Cardiovascular:Heart rate regular rhythm, no murmur [] Lungs & Thorax: Bilateral breath sounds clear to auscultation [] Abdomen: Old healed surgical scars midline abdomen. Bowel sounds normal, soft, diffuse tenderness throughout the abdomen worse on the right upper quadrant , no masses, no pulsatile masses. [] Skin: Warm, dry, no erythema, no rash. [] Back: No tenderness, no CVA tenderness. [] Extremities: No tenderness, no cyanosis, no clubbing, ROM intact, no edema. [] Neurologic: Alert and oriented X 3, normal motor function, normal sensory function, no focal deficits noted. [] Psychologic: Affect normal, judgement normal, mood normal. [] Current Patient Data Vital Signs Vital Signs Date Time Temp Pulse Resp B/P (MAP) Pulse Ox O2 Delivery O2 Flow Rate FiO2 02/15/17 15:11 88 18 122/72 (89) 95 Room Air 02/15/17 12:26 98.4 98.4 Lab Values Laboratory Tests Test 02/15/17 12:52 02/15/17 13:30 02/15/17 13:40 02/15/17 14:15 POC Urine HCG, Qualitative Hcg negative (Negative) Urine Collection Type Unknown Urine Color Yellow Urine Clarity Clear Urine pH 7.5 Urine Specific [place] 1.010 Urine Protein Negative mg/dL (NEG-TRACE) Urine Glucose (UA) Negative mg/dL (NEG) Urine Ketones (Stick) Negative mg/dL (NEG) Urine Blood Negative (NEG) Urine Nitrite Negative (NEG) Urine Bilirubin Negative (NEG) Urine Urobilinogen Dipstick 0.2 mg/dL (0.2 mg/dL) Urine Leukocyte Esterase Negative (NEG) Urine RBC 0 /HPF (0-2) Urine WBC Rare /HPF (0-4) Urine Squamous Epithelial Cells Mod /LPF Urine Bacteria Few /HPF (0-FEW) Urine Mucus Mod /LPF White Blood Count 7.4 x10^3/uL (4.0-11.0) Red Blood Count 4.35 x10^6/uL (3.50-5.40) Hemoglobin 11.2 g/dL (12.0-15.5) L Hematocrit 34.5 % (36.0-47.0) L Mean Corpuscular Volume 79 fL (79-100) Mean Corpuscular Hemoglobin 26 pg (25-35) Mean Corpuscular Hemoglobin Concent 32 g/dL (31-37) Red Cell Distribution Width 19.2 % (11.5-14.5) H Platelet Count 302 x10^3/uL (140-400) Neutrophils (%) (Auto) 84 % (31-73) H Lymphocytes (%) (Auto) 9 % (24-48) L Monocytes (%) (Auto) 6 % (0-9) Eosinophils (%) (Auto) 0 % (0-3) Basophils (%) (Auto) 1 % (0-3) Neutrophils # (Auto) 6.2 x10^3uL (1.8-7.7) Lymphocytes # (Auto) 0.7 x10^3/uL (1.0-4.8) L Monocytes # (Auto) 0.4 x10^3/uL (0.0-1.1) Eosinophils # (Auto) 0.0 x10^3/uL (0.0-0.7) Basophils # (Auto) 0.1 x10^3/uL (0.0-0.2) Sodium Level 138 mmol/L (136-145) Potassium Level 4.0 mmol/L (3.5-5.1) Chloride Level 101 mmol/L (98-107) Carbon Dioxide Level 27 mmol/L (21-32) Anion Gap 10 (6-14) Blood Urea Nitrogen 7 mg/dL (7-20) Creatinine 0.6 mg/dL (0.6-1.0) Estimated GFR (Cockcroft-Gault) 110.2 BUN/Creatinine Ratio 12 (6-20) Glucose Level 103 mg/dL (70-99) H Calcium Level 9.0 mg/dL (8.5-10.1) Total Bilirubin 0.3 mg/dL (0.2-1.0) Aspartate Amino Transferase (AST) 18 U/L (15-37) Alanine Aminotransferase (ALT) 19 U/L (14-59) Alkaline Phosphatase 92 U/L (46-116) Total Protein 7.7 g/dL (6.4-8.2) Albumin 4.1 g/dL (3.4-5.0) Albumin/Globulin Ratio 1.1 (1.0-1.7) Lipase 62 U/L (73-393) L Stool Occult Blood Positive (NEG) Laboratory Tests 02/15/17 13:40 Laboratory Tests 02/15/17 13:40 EKG EKG [] Radiology/Procedures Radiology/Procedures [] Course & Med Decision Making Course & Med Decision Making Pertinent Labs and Imaging studies reviewed. (See chart for details) This is a 40-year-old female patient who presents to the ED for chronic abdominal pain, chronic rectal bleeding, chronic nausea and vomiting. Lab work with nothing acute. She was given pain relief and nausea medicine. She was discharged with instructions to follow-up with GI. She states she has an appointment on Saturday with Dr. Boone. D/c with Aguilar Monahan Disclaimer Taniya Disclaimer This electronic medical record was generated, in whole or in part, using a voice recognition dictation system. Departure Departure Impression: Primary Impression: Chronic abdominal pain Additional Impressions: Gastroparesis Rectal bleeding Disposition: HOME, SELF-CARE Condition: STABLE Referrals: RAEJEV SHAW DO (PCP) LEONEL BOONE MD Follow-up with Dr. Boone on Saturday as scheduled Patient Instructions: Abdominal Pain, Rectal Bleeding Additional Instructions: You were seen for chronic abdominal pain and rectal bleeding. Please follow-up with Dr. Boone on Saturday Scripts Ondansetron (ZOFRAN ODT) 4 Mg Tab.rapdis 1 TAB SL Q8HRS, #15 TAB Prov: DAVID SERRANO APRN 02/15/17 Problem Qualifiers DAVID SERRANO APRN Feb 15, 2017 14:38
[2017-02-15] MEDS ORDERED: ONDA4TAB10 SL (14:40)
[2017-02-15 15:11] VITALS: BP 122/72
== END 2017-02-15 15:17 | disposition home or self-care (01) ==
LOC: ER 11:40
DX: G89.29 Other chronic pain (principal); K31.84 Gastroparesis; K62.5 Hemorrhage of anus and rectum; K21.9 Gastro-esophageal reflux disease without esophagitis; F32.9 Major depressive disorder, single episode, unspecified; F12.10 Cannabis abuse, uncomplicated; F17.210 Nicotine dependence, cigarettes, uncomplicated; Z88.8 Allergy status to other drugs, medicaments and biological substances; Z88.5 Allergy status to narcotic agent; Z90.49 Acquired absence of other specified parts of digestive tract; Z98.84 Bariatric surgery status; Z93.1 Gastrostomy status
CPT/HCPCS: 36415; 80053; 81001; 81025; 82274; 83690; 85027; 96361; 96374; 96375; 96376; 99284; J1170; J2405; J7030; S0028

== ENCOUNTER 2017-04-08 18:08 | Emergency (ER) | payer MEDICARE, OTHER ==
[~2017-04-08] VITALS: Ht 172.7 cm; Wt 70.3 kg
--- NOTE | 2017-04-08 18:26 | PHYS DOC ---
Past Medical History Past Medical History: Depression, GERD, Other Additional Past Medical Histor: ulcer, diverticulosis, chronic abd pain Past Surgical History: Cholecystectomy, Gastric Bypass, Other Additional Past Surgical Histo: hernia, ovarian cyst, low body lift, 3 abd laps , 2 peg tubes,reversal, PORT Alcohol Use: None Drug Use: Marijuana Adult General Chief Complaint Chief Complaint: ABDOMINAL PAIN HPI HPI Patient is a 41 year old female who presents with nausea vomiting diarrhea the last 2 weeks. She states she feels like she's lost weight. She has epigastric pain that's her normal pain it is worse when she is eating and she tries to stand up and feels better if she curls up in a ball. She states she's been vomiting and only vomits up bile now. She states over the last 36 hours her symptoms gotten worse. Review of Systems Review of Systems Constitutional: Denies fever or chills [] Eyes: Denies change in visual acuity, redness, or eye pain [] HENT: Denies nasal congestion or sore throat [] Respiratory: Denies cough or shortness of breath [] Cardiovascular: No additional information not addressed in HPI [] GI: Positive for abdominal pain, nausea, vomiting, and diarrhea Denies bloody stools : Denies dysuria or hematuria [] Musculoskeletal: Denies back pain or joint pain [] Integument: Denies rash or skin lesions [] Neurologic: Denies headache, focal weakness or sensory changes [] Endocrine: Denies polyuria or polydipsia [] Current Medications Current Medications Current Medications Medications (Trade) Dose Ordered Sig/Ben Start Time Stop Time Status Last Admin Dose Admin Famotidine (Pepcid) 20 mg 1X ONCE 04/08/17 18:45 04/08/17 18:46 DC 04/08/17 19:49 20 MG Heparin Sodium (Porcine) (Hep Lock Adult) 500 unit STK-MED ONCE 04/08/17 22:46 04/08/17 22:47 DC Hydromorphone HCl (Dilaudid) 1 mg PRN Q15MIN PRN 04/08/17 18:30 04/09/17 00:08 DC 04/08/17 22:45 1 MG Ondansetron HCl (Zofran) 4 mg 1X ONCE 04/08/17 21:30 04/08/17 21:31 DC 04/08/17 21:20 4 MG Sodium Chloride 1,000 ml @ 1,000 mls/hr Q1H 04/08/17 18:30 04/08/17 19:29 DC 04/08/17 19:47 1,000 MLS/HR Allergies Allergies Allergies Coded Allergies Type Severity Reaction Last Updated Verified diphenhydramine Allergy Severe hallucinations/ams 01/07/17 Yes promethazine Allergy Severe confusion/ams 01/07/17 Yes sumatriptan Allergy Severe ANAPHYLAXIS 01/07/17 Yes haloperidol Allergy Intermediate 01/07/17 Yes morphine Allergy Intermediate HIVES 01/07/17 Yes NSAIDS (Non-Steroidal Anti-Inflamma Adverse Reaction Severe bleeding. 01/07/17 Yes metoclopramide Adverse Reaction Intermediate 01/07/17 Yes prochlorperazine Adverse Reaction Intermediate 01/07/17 Yes Physical Exam Physical Exam Constitutional: Well developed, well nourished, no acute distress, non-toxic appearance. [] HENT: Normocephalic, atraumatic, bilateral external ears normal, oropharynx moist, no oral exudates, nose normal. [] Eyes: PERRLA, EOMI, conjunctiva normal, no discharge. [] Neck: Normal range of motion, no tenderness, supple, no stridor. [] Cardiovascular:Heart rate regular rhythm, no murmur [] Lungs & Thorax: Bilateral breath sounds clear to auscultation [] Abdomen: Bowel sounds normal, soft, tender palpation across the epigastric area , no masses, no pulsatile masses. [] Skin: Warm, dry, no erythema, no rash. [] Back: No tenderness, no CVA tenderness. [] Extremities: No tenderness, no cyanosis, no clubbing, ROM intact, no edema. [] Neurologic: Alert and oriented X 3, normal motor function, normal sensory function, no focal deficits noted. [] Psychologic: Affect normal, judgement normal, mood normal. [] Current Patient Data Vital Signs Vital Signs Date Time Temp Pulse Resp B/P (MAP) Pulse Ox O2 Delivery O2 Flow Rate FiO2 04/08/17 22:55 78 14 123/71 (88) 97 Room Air 04/08/17 18:47 98.7 98.7 Lab Values Laboratory Tests Test 04/08/17 19:30 White Blood Count 7.2 x10^3/uL (4.0-11.0) Red Blood Count 4.56 x10^6/uL (3.50-5.40) Hemoglobin 11.4 g/dL (12.0-15.5) L Hematocrit 36.1 % (36.0-47.0) Mean Corpuscular Volume 79 fL (79-100) Mean Corpuscular Hemoglobin 25 pg (25-35) Mean Corpuscular Hemoglobin Concent 32 g/dL (31-37) Red Cell Distribution Width 17.7 % (11.5-14.5) H Platelet Count 322 x10^3/uL (140-400) Neutrophils (%) (Auto) 75 % (31-73) H Lymphocytes (%) (Auto) 17 % (24-48) L Monocytes (%) (Auto) 7 % (0-9) Eosinophils (%) (Auto) 1 % (0-3) Basophils (%) (Auto) 1 % (0-3) Neutrophils # (Auto) 5.4 x10^3uL (1.8-7.7) Lymphocytes # (Auto) 1.2 x10^3/uL (1.0-4.8) Monocytes # (Auto) 0.5 x10^3/uL (0.0-1.1) Eosinophils # (Auto) 0.1 x10^3/uL (0.0-0.7) Basophils # (Auto) 0.0 x10^3/uL (0.0-0.2) Urine Color Yellow Urine Clarity Cloudy Urine pH 7.0 Urine Specific [place] 1.015 Urine Protein Negative mg/dL (NEG-TRACE) Urine Glucose (UA) Negative mg/dL (NEG) Urine Ketones (Stick) Negative mg/dL (NEG) Urine Blood Negative (NEG) Urine Nitrite Negative (NEG) Urine Bilirubin Negative (NEG) Urine Urobilinogen Dipstick 0.2 mg/dL (0.2 mg/dL) Urine Leukocyte Esterase Negative (NEG) Urine RBC 0 /HPF (0-2) Urine WBC Occ /HPF (0-4) Urine Squamous Epithelial Cells Occ /LPF Urine Bacteria Few /HPF (0-FEW) Urine Hyaline Casts Occasional /HPF Urine Mucus Mod /LPF Sodium Level 139 mmol/L (136-145) Potassium Level 3.5 mmol/L (3.5-5.1) Chloride Level 101 mmol/L (98-107) Carbon Dioxide Level 25 mmol/L (21-32) Anion Gap 13 (6-14) Blood Urea Nitrogen 9 mg/dL (7-20) Creatinine 0.8 mg/dL (0.6-1.0) Estimated GFR (Cockcroft-Gault) 78.7 Glucose Level 98 mg/dL (70-99) Calcium Level 8.5 mg/dL (8.5-10.1) Total Bilirubin 0.3 mg/dL (0.2-1.0) Direct Bilirubin 0.1 mg/dL (0.0-0.2) Aspartate Amino Transferase (AST) 13 U/L (15-37) L Alanine Aminotransferase (ALT) 18 U/L (14-59) Alkaline Phosphatase 81 U/L (46-116) Creatine Kinase 45 U/L (26-192) Total Protein 7.3 g/dL (6.4-8.2) Albumin 4.0 g/dL (3.4-5.0) Lipase 73 U/L (73-393) Laboratory Tests 04/08/17 19:30 Laboratory Tests 04/08/17 19:30 EKG EKG [] Radiology/Procedures Radiology/Procedures [] Impressions: Chronic abdominal pain with nausea vomiting Course & Med Decision Making Course & Med Decision Making Pertinent Labs and Imaging studies reviewed. (See chart for details) She presented with her chronic abdominal pain I offered her x-rays that she was hold off and see how she feels after IV fluids and antinausea meds. She also received Dilaudid 1 mg 3. She states she feels better at this time. She is requesting be discharged. Return precautions given. I did not refill any oral narcotic prescriptions and informed her she is ago to her primary care physician for this. Dragon Disclaimer Dragon Disclaimer This electronic medical record was generated, in whole or in part, using a voice recognition dictation system. Departure Departure Impression: Primary Impression: Abdominal pain Disposition: ADMITTED INPATIENT Condition: STABLE Referrals: UNKNOWN PCP NAME (PCP) Patient Instructions: Nausea and Vomiting, [id number] Additional Instructions: You were seen tonight for your nausea vomiting and pain. Your pain Better with IV pain meds and your labs did not show any acute abnormality's. Your being discharged home. You will need to follow-up with her primary care physician regarding her pain meds. The ER for severe pain, fevers or other concerns. Problem Qualifiers Primary Impression: Abdominal pain Abdominal location: epigastric Qualified Codes: R10.13 - Epigastric pain DEENA JARVIS MD Apr 08, 2017 18:26
[2017-04-08] MEDS ORDERED: IV NORMAL SALINE 1000ML BAG 1,000 ML IV SCH (18:30)
[2017-04-08] MEDS ORDERED: ONDANSETRON PF 4 MG/2 ML VIAL. IV ONE ×2 (18:45→21:30)
[2017-04-08] MEDS ORDERED: FAMOTIDINE 20 MG/2 ML VIAL IVP ONE (18:45)
[2017-04-08 19:38] LABS: BASO % 1 % (0-3); EOS % 1 % (0-3); HEMATOCRIT 36.1 % (36.0-47.0); HEMOGLOBIN 11.4 g/dL (12.0-15.5); LYMPH # 1.2 x10^3/uL (1.0-4.8); LYMPH % 17 % (24-48); MEAN CORPUSCULAR HEMOGLOBIN 25 pg (25-35); MEAN CORPUSCULAR HGB CONC 32 g/dL (31-37); MEAN CORPUSCULAR VOLUME 79 fL (79-100); MONO % 7 % (0-9); NEUT % 75 % (31-73); PLATELET COUNT 322 x10^3/uL (140-400); RED BLOOD COUNT 4.56 x10^6/uL (3.50-5.40); RED CELL DISTRIBUTION WIDTH 17.7 % (11.5-14.5); WHITE BLOOD COUNT 7.2 x10^3/uL (4.0-11.0)
[2017-04-08 19:41] LABS: BILIRUBIN,URINE NEGATIVE (NEG); GLUCOSE,URINE NEGATIVE (NEG); NITRITE,URINE NEGATIVE (NEG); PROTEIN,URINE NEGATIVE (NEG-TRACE); UROBILINOGEN,URINE 0.2 mg/dL (0.2 mg/dL)
[2017-04-08] MEDS: HYDROmorphone 2 MG/ML VIAL IV/SQ PRN ×3 (19:48→22:45)
[2017-04-08 19:49] LABS: BACTERIA,URINE FEW /HPF (0-FEW); CALCIUM 8.5 mg/dL (8.5-10.1); CREATININE 0.8 mg/dL (0.6-1.0); GFR 78.7; POTASSIUM 3.5 mmol/L (3.5-5.1); RBC,URINE 0 /HPF (0-2); SQUAMOUS EPITHELIAL CELL,UR OCC /LPF; WBC,URINE OCC /HPF (0-4)
[2017-04-08 19:55] LABS: DIRECT BILIRUBIN 0.1 mg/dL (0.0-0.2); TOTAL BILIRUBIN 0.3 mg/dL (0.2-1.0); TOTAL PROTEIN 7.3 g/dL (6.4-8.2)
[2017-04-08] MEDS ORDERED: HEPARIN PF 500 UNIT/5 ML DISP.SYRIN. IV ONE (22:46)
[2017-04-08 22:55] VITALS: BP 123/71
== END 2017-04-08 22:55 | disposition other institution (70) ==
LOC: ER 18:08
DX: R10.13 Epigastric pain (principal); R11.2 Nausea with vomiting, unspecified; R19.7 Diarrhea, unspecified; G89.29 Other chronic pain; K21.9 Gastro-esophageal reflux disease without esophagitis; Z90.49 Acquired absence of other specified parts of digestive tract; Z98.890 Other specified postprocedural states; Z88.6 Allergy status to analgesic agent; Z88.5 Allergy status to narcotic agent; Z88.8 Allergy status to other drugs, medicaments and biological substances
CPT/HCPCS: 36415; 80048; 80076; 81001; 82550; 83690; 85025; 96361; 96374; 96375; 96376; 99285; J1170; J2405; J7030; S0028

== ENCOUNTER 2017-06-23 08:06 | Emergency (ER) | payer MEDICARE, OTHER ==
[~2017-06-23] VITALS: Ht 172.7 cm; Wt 65.8 kg
[~2017-06-23 08:06] MED LIST changes: -LOSA1TAB16 PO; +LOSA1TAB19 PO; +OXYC1TAB9 PO
[2017-06-23 09:05] LABS: BASO % 1 % (0-3); EOS % 1 % (0-3); HEMATOCRIT 36.2 % (36.0-47.0); HEMOGLOBIN 11.4 g/dL (12.0-15.5); LYMPH # 0.8 x10^3/uL (1.0-4.8); LYMPH % 12 % (24-48); MEAN CORPUSCULAR HEMOGLOBIN 26 pg (25-35); MEAN CORPUSCULAR HGB CONC 31 g/dL (31-37); MEAN CORPUSCULAR VOLUME 81 fL (79-100); MONO % 6 % (0-9); NEUT % 80 % (31-73); PLATELET COUNT 314 x10^3/uL (140-400); RED BLOOD COUNT 4.46 x10^6/uL (3.50-5.40); RED CELL DISTRIBUTION WIDTH 17.7 % (11.5-14.5); WHITE BLOOD COUNT 6.4 x10^3/uL (4.0-11.0)
[2017-06-23 09:07] LABS: CALCIUM 8.8 mg/dL (8.5-10.1); CREATININE 0.7 mg/dL (0.6-1.0); GFR 91.8; POTASSIUM 3.8 mmol/L (3.5-5.1)
[2017-06-23 09:15] LABS: ALBUMIN 3.5 g/dL (3.4-5.0); TOTAL BILIRUBIN 0.3 mg/dL (0.2-1.0); TOTAL PROTEIN 7.1 g/dL (6.4-8.2)
--- NOTE | 2017-06-23 09:51 | ED.ADGEN ---
Past Medical History Past Medical History: Depression, GERD, GI Bleed, Other Additional Past Medical Histor: ulcer, diverticulosis, chronic abd pain Past Surgical History: Cholecystectomy, Gastric Bypass, Other Additional Past Surgical Histo: hernia, ovarian cyst, low body lift, 3 abd laps , 2 peg tubes,reversal, PORT Alcohol Use: None Drug Use: Marijuana Adult General Chief Complaint Chief Complaint: BLOODY STOOL HPI HPI Patient is a 41 year old woman, history of chronic abdominal pain, status post gastric bypass surgery with multiple revisions and complications, including obstruction, C. difficile that was diagnosed about a month and half ago, who completed treatment, but then was started on antibiotics about 2 weeks ago, who presents to the emergency department with a complaint of abdominal pain, nausea , vomiting, and diarrhea over the past several days. Patient states that she been able keep anything down for the past several days, and has had multiple episodes of loose dark stool, maroonish in color, denies any sebastian blood in emesis or in stool. She states that she is having pain throughout her abdomen, she states that the symptoms are similar to when she was diagnosed with C. difficile, and as stated has had a recent antibiotic course. Review of Systems Review of Systems Constitutional: Denies fever or chills. [] Eyes: Denies change in visual acuity. [] HENT: Denies nasal congestion or sore throat. [] Respiratory: Denies cough or shortness of breath. [] Cardiovascular: Denies chest pain or edema. [] GI: Abdominal pain, diffusely, since the nausea, vomiting, bloody stools and diarrhea. : Denies dysuria. [] Musculoskeletal: Denies back pain or joint pain. [] Integument: Denies rash. [] Neurologic: Denies headache, focal weakness or sensory changes. [] Endocrine: Denies polyuria or polydipsia. [] Lymphatic: Denies swollen glands. [] Psychiatric: Denies depression or anxiety. [] Current Medications Current Medications Current Medications Medications (Trade) Dose Ordered Sig/Ben Start Time Stop Time Status Last Admin Dose Admin Acetaminophen/ Hydrocodone Bitart (Lortab 7.5/325) 1 tab 1X ONCE 06/23/17 14:30 06/23/17 14:31 DC 06/23/17 14:20 1 TAB Dicyclomine HCl (Bentyl) 10 mg 1X ONCE 06/23/17 14:30 06/23/17 14:31 DC 06/23/17 14:20 10 MG Fentanyl Citrate (Fentanyl 2ml Vial) 25 mcg PRN Q15MIN PRN 06/23/17 10:15 06/23/17 14:41 DC 06/23/17 13:31 25 MCG Heparin Sodium (Porcine) (Hep Lock Adult) 500 unit 1X ONCE 06/23/17 14:00 06/23/17 14:02 DC 06/23/17 14:26 500 UNIT Info (Do NOT chart on this entry -- for MONITORING) 1 each PRN DAILY PRN 06/23/17 10:45 06/23/17 14:41 DC Iohexol (Omnipaque 240 Mg/ml) 30 ml 1X ONCE 06/23/17 11:15 06/23/17 11:16 DC Iohexol (Omnipaque 300 Mg/ml) 75 ml 1X ONCE 06/23/17 11:15 06/23/17 11:16 DC 06/23/17 11:15 19.9 ML Ondansetron HCl (Zofran) 4 mg 1X ONCE 06/23/17 14:00 06/23/17 14:01 DC 06/23/17 13:30 4 MG Sodium Chloride 1,000 ml @ 1,000 mls/hr 1X ONCE 06/23/17 10:15 06/23/17 11:14 DC 06/23/17 10:12 1,000 MLS/HR Allergies Allergies Allergies Coded Allergies Type Severity Reaction Last Updated Verified diphenhydramine Allergy Severe hallucinations/ams 01/07/17 Yes promethazine Allergy Severe confusion/ams 01/07/17 Yes sumatriptan Allergy Severe ANAPHYLAXIS 01/07/17 Yes haloperidol Allergy Intermediate 01/07/17 Yes morphine Allergy Intermediate HIVES 01/07/17 Yes NSAIDS (Non-Steroidal Anti-Inflamma Adverse Reaction Severe bleeding. 01/07/17 Yes metoclopramide Adverse Reaction Intermediate 01/07/17 Yes prochlorperazine Adverse Reaction Intermediate 01/07/17 Yes Physical Exam Physical Exam Constitutional: Well developed, well nourished, no acute distress, non-toxic appearance. [] HENT: Normocephalic, atraumatic, bilateral external ears normal, oropharynx moist, no oral exudates, nose normal. [] Eyes: PERRLA, EOMI, conjunctiva normal, no discharge. [] Neck: Normal range of motion, no tenderness, supple, no stridor. [] Cardiovascular:Heart rate regular rhythm, no murmur, S1, S2, no rubs or gallops. Patient with a right-sided port which is been accessed. Site is clean dry and intact. [] Lungs & Thorax: Bilateral breath sounds clear to auscultation, no wheezing, rhonchi, rales. No chest wall crepitus or tenderness. [] Abdomen: Bowel sounds normal, soft, patient with tenderness to palpation diffusely, no rebound or rigidity, positive for mild voluntary guarding in the lower abdomen, patient with well-healed vertical surgical incision Skin: Warm, dry, no erythema, no rash. [] Back: No tenderness, no CVA tenderness. [] Extremities: No tenderness, no cyanosis, no clubbing, ROM intact, no edema. [] Neurologic: Alert and oriented X 3, normal motor function, normal sensory function, no focal deficits noted. [] Psychologic: Affect normal, judgement normal, mood normal. [] Rectal examination: Patient with a normal-appearing external examination, no hemorrhoids, fissures, or other normality is visualized, patient without tenderness and examination or masses palpated, patient with a small amount of dark brown stool noted in vault, no gross blood., no masses, no pulsatile masses. [] Current Patient Data Vital Signs Vital Signs Date Time Temp Pulse Resp B/P (MAP) Pulse Ox O2 Delivery O2 Flow Rate FiO2 06/23/17 14:01 62 18 129/76 (93) 97 Room Air 06/23/17 08:30 98.1 98.1 Lab Values Laboratory Tests Test 06/23/17 08:20 06/23/17 08:45 06/23/17 09:37 Urine Collection Type Unknown Urine Color Yellow Urine Clarity Clear Urine pH 7.0 Urine Specific Mcdowell 1.020 Urine Protein Negative mg/dL (NEG-TRACE) Urine Glucose (UA) Negative mg/dL (NEG) Urine Ketones (Stick) Negative mg/dL (NEG) Urine Blood Negative (NEG) Urine Nitrite Negative (NEG) Urine Bilirubin Negative (NEG) Urine Urobilinogen Dipstick 1.0 mg/dL (0.2 mg/dL) Urine Leukocyte Esterase Moderate (NEG) Urine RBC 0 /HPF (0-2) Urine WBC 1-4 /HPF (0-4) Urine Squamous Epithelial Cells Mod /LPF Urine Bacteria Few /HPF (0-FEW) Urine Mucus Slight /LPF Urine Opiates Screen Pos (NEG) Urine Methadone Screen Neg (NEG) Urine Barbiturates Neg (NEG) Urine Phencyclidine Screen Neg (NEG) Urine Amphetamine/Methamphetamine Neg (NEG) Urine Benzodiazepines Screen Neg (NEG) Urine Cocaine Screen Neg (NEG) Urine Cannabinoids Screen Pos (NEG) Urine Ethyl Alcohol Neg (NEG) White Blood Count 6.4 x10^3/uL (4.0-11.0) Red Blood Count 4.46 x10^6/uL (3.50-5.40) Hemoglobin 11.4 g/dL (12.0-15.5) L Hematocrit 36.2 % (36.0-47.0) Mean Corpuscular Volume 81 fL (79-100) Mean Corpuscular Hemoglobin 26 pg (25-35) Mean Corpuscular Hemoglobin Concent 31 g/dL (31-37) Red Cell Distribution Width 17.7 % (11.5-14.5) H Platelet Count 314 x10^3/uL (140-400) Neutrophils (%) (Auto) 80 % (31-73) H Lymphocytes (%) (Auto) 12 % (24-48) L Monocytes (%) (Auto) 6 % (0-9) Eosinophils (%) (Auto) 1 % (0-3) Basophils (%) (Auto) 1 % (0-3) Neutrophils # (Auto) 5.1 x10^3uL (1.8-7.7) Lymphocytes # (Auto) 0.8 x10^3/uL (1.0-4.8) L Monocytes # (Auto) 0.4 x10^3/uL (0.0-1.1) Eosinophils # (Auto) 0.0 x10^3/uL (0.0-0.7) Basophils # (Auto) 0.0 x10^3/uL (0.0-0.2) Sodium Level 139 mmol/L (136-145) Potassium Level 3.8 mmol/L (3.5-5.1) Chloride Level 104 mmol/L (98-107) Carbon Dioxide Level 26 mmol/L (21-32) Anion Gap 9 (6-14) Blood Urea Nitrogen 10 mg/dL (7-20) Creatinine 0.7 mg/dL (0.6-1.0) Estimated GFR (Cockcroft-Gault) 91.8 BUN/Creatinine Ratio 14 (6-20) Glucose Level 110 mg/dL (70-99) H Calcium Level 8.8 mg/dL (8.5-10.1) Total Bilirubin 0.3 mg/dL (0.2-1.0) Aspartate Amino Transferase (AST) 16 U/L (15-37) Alanine Aminotransferase (ALT) 15 U/L (14-59) Alkaline Phosphatase 82 U/L (46-116) Total Protein 7.1 g/dL (6.4-8.2) Albumin 3.5 g/dL (3.4-5.0) Albumin/Globulin Ratio 1.0 (1.0-1.7) Stool Occult Blood Positive (NEG) Laboratory Tests 06/23/17 08:45 Laboratory Tests 06/23/17 08:45 EKG EKG Not indicated. Radiology/Procedures Radiology/Procedures [][facility] [address] [place] [address] IMAGING REPORT Signed PATIENT: DANIELLE ALVAREZ ACCOUNT: [id number] : 03/30/1976 LOCATION: ER AGE: 41 SEX: F EXAM STATUS: REG ER ORD. PHYSICIAN: ROVERTO MORTON DO REASON: Abd pain/n/v/d/ hx of gastric bypass status post revision status post obstr PROCEDURE: CT ABD PELV W/ORAL&IV CONTRAST PQRS Compliance Statement: One or more of the following individualized dose reduction techniques were utilized for this examination: 1. Automated exposure control 2. Adjustment of the mA and/or kV according to patient size 3. Use of iterative reconstruction technique CT ABD PELV W/ORAL IV CONTRAST Clinical Indication: Umbilical pain x3 days. History of gastric bypass 2003, revision 2013. Vomiting, diarrhea. Abd pain/n/v/d/ hx of gastric bypass status post revision status post obstr Comparison: CT abdomen pelvis with contrast 12/06/2012. Technique: Helical CT imaging of the abdomen and pelvis is performed without IV contrast. Oral contrast is given. Findings: Evaluation of solid organs is limited without IV contrast and may decrease sensitivity for detection of pathology. Lung bases clear. Cardiac size normal. Cholecystectomy. Calcified granulomas in the spleen. Liver, pancreas, adrenal glands, kidneys, and abdominal aorta caliber are normal. Postsurgical changes of gastric bypass. Perianastomotic small bowel is dilated but there is no wall thickening. Appearance similar to prior study. Oral contrast reaches the colon indicating that there is no small bowel obstruction. There is no colon wall thickening. Appendix is not identified, no secondary signs of appendicitis. No abdominal adenopathy or free fluid. The urinary bladder is distended, otherwise normal. Uterus unremarkable. No pelvic free fluid. No acute bone abnormality. IMPRESSION: 1. No acute abdominal or pelvic abnormality. 2. Stable changes of gastric bypass. Oral contrast has reached the colon indicating there is no small bowel traction. DICTATED and SIGNED BY: SUHA BANERJEE MD DATE: 06/23/17 1320 CC: ROVERTO MORTON DO; NO PCP ~ Course & Med Decision Making Course & Med Decision Making Pertinent Labs and Imaging studies reviewed. (See chart for details) Patient well-appearing, is having dry heaves in the ED, but no vomiting. No further episodes of diarrhea in the ED, did attempt initially sent stool sample , but apparently was unlabeled, and patient did not produce another sample during her time in the ED. Rectal examination reveals a smear of brownish stool , no melena, no gross blood, which was heme positive. CT of abdomen and pelvis obtained with oral and IV contrast due to patient's history of gastric bypass surgery, did not reveal evidence of obstruction inflammation other acutely concerning findings. I did discuss findings with patient, she is resting comfortable at this time after receiving analgesia, as stated had no further episodes of vomiting or diarrhea. Aside from the heme positive stool, no concerning finds have been identified. Did discuss with patient potential admission to the hospital, patient states that she is feeling well this time, and would like to follow-up as an outpatient with her GI physicians, states that she feels confident she can follow-up, as she is supposed to be following up this month any way. She states she currently is not her primary care provider , as her physician retired, she was given contact information for Dr. Madden in order to establish a new primary. She she does have all medications at home, but states she only has 2 or 3 Henderson left which she does take as needed, I did discuss with the patient that with her complaints and evaluation the ED, that it would not be appropriate if we discharge her with a prescription for a chronic medication without acute indication, she states she will follow-up with her GI doctor, and establishing a primary, she'll return to the ED if any new or concerning symptoms to develop. As stated, patient was placed and precautions due to report of previous C. difficile infection, was unable to produce a stool sample in the ED. No indications for restarting antibiotics isn' t patient's evaluation report, patient voiced understanding with this plan, will follow up with GI, and with Dr. Madden or primary care provider for choosing, to return to the ED if any new or concerning symptoms develop. Discharged home in stable condition with Dr. jose Polo and Odalys with plan and precautions as stated. Taniya Disclaimer Dragon Disclaimer This electronic medical record was generated, in whole or in part, using a voice recognition dictation system. Departure Impression: Primary Impression: Abdominal pain Additional Impression: Heme positive stool Disposition: 01 HOME, SELF-CARE Condition: IMPROVED Scripts Ondansetron Hcl (ZOFRAN) 4 Mg Tablet 1 TAB PO PRN Q6-8HRS Y for NAUSEA, #12 TAB Prov: ROVERTO MORTON DO 06/23/17 Dicyclomine Hcl (BENTYL) 10 Mg Capsule 10 MG PO PRN QID Y for ABD CRAMPING, #12 TAB Prov: ROVERTO MORTON DO 06/23/17 Problem Qualifiers ROVERTO MORTON DO Jun 23, 2017 09:51
[2017-06-23] MEDS: fentaNYL PF VIAL 100 MCG/2 ML VIAL IV PRN ×3 (10:13→13:31)
[2017-06-23] MEDS ORDERED: ONDANSETRON PF 4 MG/2 ML VIAL. IV ONE ×2 (10:15→14:00)
[2017-06-23] MEDS ORDERED: IV NORMAL SALINE 1000ML BAG 1,000 ML IV ONE (10:15)
[2017-06-23 10:24] LABS: BILIRUBIN,URINE NEGATIVE (NEG); GLUCOSE,URINE NEGATIVE (NEG); NITRITE,URINE NEGATIVE (NEG); PROTEIN,URINE NEGATIVE (NEG-TRACE)
[2017-06-23 10:29] LABS: BARBITURATES NEG (NEG); BENZODIAZEPINES NEG (NEG); CANNABINOIDS POS (NEG); COCAINE NEG (NEG); METHADONE NEG (NEG); OPIATES POS (NEG); PHENCYCLIDINE NEG (NEG)
[2017-06-23 10:37] LABS: NEG OBC FOB NEG; POS OBC FOB POS
[2017-06-23 10:44] LABS: BACTERIA,URINE FEW /HPF (0-FEW); RBC,URINE 0 /HPF (0-2); SQUAMOUS EPITHELIAL CELL,UR MOD /LPF
[2017-06-23] MEDS ORDERED: CONTRAST GIVEN MC PRN (10:45)
[2017-06-23] MEDS ORDERED: IOHEXOL 300 MG/ML 100ML VIAL. IV ONE (11:15)
[2017-06-23] MEDS ORDERED: IOHEXOL 240 MG/ML 50ML VIAL. PO ONE (11:15)
--- NOTE | 2017-06-23 13:34 | RAD ---
PQRS Compliance Statement: One or more of the following individualized dose reduction techniques were utilized for this examination: 1. Automated exposure control 2. Adjustment of the mA and/or kV according to patient size 3. Use of iterative reconstruction technique CT ABD PELV W/ORAL IV CONTRAST Clinical Indication: Umbilical pain x3 days. History of gastric bypass 2004, revision 2013. Vomiting, diarrhea. Abd pain/n/v/d/ hx of gastric bypass status post revision status post obstr Comparison: CT abdomen pelvis with contrast 12/06/2012. Technique: Helical CT imaging of the abdomen and pelvis is performed without IV contrast. Oral contrast is given. Findings: Evaluation of solid organs is limited without IV contrast and may decrease sensitivity for detection of pathology. Lung bases clear. Cardiac size normal. Cholecystectomy. Calcified granulomas in the spleen. Liver, pancreas, adrenal glands, kidneys, and abdominal aorta caliber are normal. Postsurgical changes of gastric bypass. Perianastomotic small bowel is dilated but there is no wall thickening. Appearance similar to prior study. Oral contrast reaches the colon indicating that there is no small bowel obstruction. There is no colon wall thickening. Appendix is not identified, no secondary signs of appendicitis. No abdominal adenopathy or free fluid. The urinary bladder is distended, otherwise normal. Uterus unremarkable. No pelvic free fluid. No acute bone abnormality. IMPRESSION: 1. No acute abdominal or pelvic abnormality. 2. Stable changes of gastric bypass. Oral contrast has reached the colon indicating there is no small bowel traction.
[2017-06-23] MEDS ORDERED: HEPARIN PF 500 UNIT/5 ML DISP.SYRIN. IV ONE (14:00)
[2017-06-23 14:01] VITALS: BP 129/76
[2017-06-23] MEDS ORDERED: DICY10CA53 PO (14:03)
[2017-06-23] MEDS ORDERED: ONDA4TAB7 PO (14:03)
[2017-06-23] MEDS ORDERED: DICYCLOMINE HCL 10 MG CAPSULE PO ONE (14:30)
[2017-06-23] MEDS ORDERED: HYDROcodone/APAP 7.5/325MG 1 TAB TABLET PO ONE (14:30)
== END 2017-06-23 14:41 | disposition home or self-care (01) ==
LOC: ER 08:06
DX: R10.84 Generalized abdominal pain (principal); K92.1 Melena; R11.2 Nausea with vomiting, unspecified; R19.7 Diarrhea, unspecified; G89.29 Other chronic pain; F32.9 Major depressive disorder, single episode, unspecified; K21.9 Gastro-esophageal reflux disease without esophagitis; F12.10 Cannabis abuse, uncomplicated; Z98.84 Bariatric surgery status; Z90.49 Acquired absence of other specified parts of digestive tract; Z88.8 Allergy status to other drugs, medicaments and biological substances; Z88.5 Allergy status to narcotic agent; Z88.6 Allergy status to analgesic agent
CPT/HCPCS: 36415; 74177; 80053; 80307; 81001; 82274; 85025; 96361; 96374; 96375; 96376; 99285; J2405; J3010; J7030; Q9967; G0479

== ENCOUNTER 2017-08-12 09:53 | Emergency (ER) | payer MEDICARE, OTHER ==
[2017-08-12] MEDS ORDERED: 0.9 % SODIUM CHLORIDE 10 ML DISP.SYRIN. IV (10:45)
[2017-08-12 10:50] LABS: BILIRUBIN,URINE NEGATIVE (NEG); CLARITY,URINE CLEAR; COLOR,URINE YELLOW; GLUCOSE,URINE NEGATIVE (NEG); NITRITE,URINE NEGATIVE (NEG); PROTEIN,URINE NEGATIVE (NEG-TRACE); UROBILINOGEN,URINE 0.2 mg/dL (0.2 mg/dL)
[2017-08-12 10:59] LABS: AMPHETAMINE/METHAMPHETAMINE NEG (NEG); BARBITURATES NEG (NEG); BENZODIAZEPINES NEG (NEG); CANNABINOIDS POS (NEG); COCAINE NEG (NEG); ETHANOL, URINE NEG (NEG); METHADONE NEG (NEG); OPIATES POS (NEG); PHENCYCLIDINE NEG (NEG)
[2017-08-12 11:04] LABS: BACTERIA,URINE 0 /HPF (0-FEW); RBC,URINE 0 /HPF (0-2); WBC,URINE OCC /HPF (0-4)
[2017-08-12] MEDS: IV NORMAL SALINE 1000ML BAG 1,000 ML IV (11:10)
[2017-08-12] MEDS: ONDANSETRON PF 4 MG/2 ML VIAL. IV ×2 (11:15→14:00)
[2017-08-12] MEDS: fentaNYL PF VIAL 100 MCG/2 ML VIAL IV ×3 (11:17→14:01)
[2017-08-12 11:20] LABS: ADD MAN DIFF? NO
[2017-08-12 11:28] LABS: BASO % 0 % (0-3); EOS % 0 % (0-3); HEMATOCRIT 33.6 % (36.0-47.0); HEMOGLOBIN 10.5 g/dL (12.0-15.5); LYMPH # 0.4 x10^3/uL (1.0-4.8); LYMPH % 9 % (24-48); MEAN CORPUSCULAR HEMOGLOBIN 26 pg (25-35); MEAN CORPUSCULAR HGB CONC 31 g/dL (31-37); MEAN CORPUSCULAR VOLUME 84 fL (79-100); MONO # 0.4 x10^3/uL (0.0-1.1); MONO % 8 % (0-9); NEUT # 4.3 x10^3uL (1.8-7.7); NEUT % 83 % (31-73); PLATELET COUNT 247 x10^3/uL (140-400); WHITE BLOOD COUNT 5.2 x10^3/uL (4.0-11.0)
[2017-08-12 11:44] LABS: ANION GAP 10 (6-14); BLOOD UREA NITROGEN 10 mg/dL (7-20); CALCIUM 8.5 mg/dL (8.5-10.1); CARBON DIOXIDE 27 mmol/L (21-32); CHLORIDE 107 mmol/L (98-107); CREATININE 0.6 mg/dL (0.6-1.0); GFR 109.6; GLUCOSE 100 mg/dL (70-99); SODIUM 144 mmol/L (136-145)
[2017-08-12 11:51] LABS: ALBUMIN 3.8 g/dL (3.4-5.0); ALK PHOS 89 U/L (46-116); ALT (SGPT) 18 U/L (14-59); AST (SGOT) 15 U/L (15-37); DIRECT BILIRUBIN 0.1 mg/dL (0.0-0.2); LIPASE 60 U/L (73-393); TOTAL BILIRUBIN 0.3 mg/dL (0.2-1.0); TOTAL PROTEIN 6.6 g/dL (6.4-8.2)
[2017-08-12 12:00] LABS: CKMB MASS < 0.5 ng/mL (0.0-3.6); CREATINE KINASE 78 U/L (26-192)
[2017-08-12] MEDS: IOHEXOL 300 MG/ML 100ML VIAL. IV (13:35)
== END 2017-08-12 14:55 | disposition home or self-care (01) ==
LOC: ER 09:53
DX: G89.29 Other chronic pain (principal); R10.84 Generalized abdominal pain; K31.84 Gastroparesis; K21.9 Gastro-esophageal reflux disease without esophagitis; F17.210 Nicotine dependence, cigarettes, uncomplicated; F12.10 Cannabis abuse, uncomplicated; Z90.49 Acquired absence of other specified parts of digestive tract; Z98.84 Bariatric surgery status; Z88.5 Allergy status to narcotic agent; Z88.6 Allergy status to analgesic agent; Z88.8 Allergy status to other drugs, medicaments and biological substances
CPT/HCPCS: 36415; 74177; 80048; 80076; 80307; 81001; 82553; 83690; 85025; 93005; 96361; 96374; 96375; 96376; 99285-25; J2060; J2405; J3010; J7030; Q9967

== ENCOUNTER 2017-09-02 13:08 | Inpatient (IN) | payer MEDICARE, OTHER ==
[2017-09-02] MEDS ORDERED: CONTRAST GIVEN MC ×2 (15:30)
[2017-09-02 15:36] LABS: BILIRUBIN,URINE NEGATIVE (NEG); CLARITY,URINE CLEAR; COLOR,URINE YELLOW; GLUCOSE,URINE NEGATIVE (NEG); NITRITE,URINE NEGATIVE (NEG); PROTEIN,URINE NEGATIVE (NEG-TRACE); UROBILINOGEN,URINE 0.2 mg/dL (0.2 mg/dL)
[2017-09-02 15:43] LABS: RBC,URINE 0 /HPF (0-2); WBC,URINE RARE /HPF (0-4)
[2017-09-02 15:44] LABS: BACTERIA,URINE FEW /HPF (0-FEW); SQUAMOUS EPITHELIAL CELL,UR FEW /LPF
[2017-09-02] MEDS: ONDANSETRON PF 4 MG/2 ML VIAL. IV ×6 (16:07→19:52)
[2017-09-02] MEDS: HYDROmorphone 2 MG/ML VIAL IV/SQ ×6 (16:08→19:52)
[2017-09-02 16:10] LABS: ADD MAN DIFF? NO
[2017-09-02] MEDS: IOHEXOL 300 MG/ML 100ML VIAL. IV ×2 (16:22)
[2017-09-02 16:25] LABS: BASO % 1 % (0-3); EOS # 0.1 x10^3/uL (0.0-0.7); EOS % 1 % (0-3); HEMATOCRIT 31.5 % (36.0-47.0); HEMOGLOBIN 10.2 g/dL (12.0-15.5); LYMPH # 1.1 x10^3/uL (1.0-4.8); LYMPH % 19 % (24-48); MEAN CORPUSCULAR HEMOGLOBIN 26 pg (25-35); MEAN CORPUSCULAR HGB CONC 32 g/dL (31-37); MEAN CORPUSCULAR VOLUME 81 fL (79-100); MONO # 0.5 x10^3/uL (0.0-1.1); MONO % 9 % (0-9); NEUT # 4.1 x10^3uL (1.8-7.7); NEUT % 71 % (31-73); PLATELET COUNT 274 x10^3/uL (140-400); RED BLOOD COUNT 3.88 x10^6/uL (3.50-5.40); RED CELL DISTRIBUTION WIDTH 16.3 % (11.5-14.5); WHITE BLOOD COUNT 5.9 x10^3/uL (4.0-11.0)
[2017-09-02 16:26] LABS: ANION GAP 8 (6-14); BLOOD UREA NITROGEN 7 mg/dL (7-20); BUN/CREATININE RATIO 12 (6-20); CALCIUM 8.7 mg/dL (8.5-10.1); CARBON DIOXIDE 27 mmol/L (21-32); CHLORIDE 103 mmol/L (98-107); CREATININE 0.6 mg/dL (0.6-1.0); GFR 109.6; GLUCOSE 93 mg/dL (70-99); POTASSIUM 3.6 mmol/L (3.5-5.1); SODIUM 138 mmol/L (136-145)
[2017-09-02 16:38] LABS: ALBUMIN 3.6 g/dL (3.4-5.0); ALK PHOS 106 U/L (46-116); ALT (SGPT) 40 U/L (14-59); AST (SGOT) 14 U/L (15-37); LIPASE 94 U/L (73-393); TOTAL BILIRUBIN 0.3 mg/dL (0.2-1.0); TOTAL PROTEIN 7.2 g/dL (6.4-8.2)
[2017-09-02] MEDS: PANTOPRAZOLE 40 MG TABLET.DR. PO ×2 (19:26)
[2017-09-02] MEDS ORDERED: DICYCLOMINE HCL 10 MG CAPSULE PO ×2 (21:15)
[2017-09-02] MEDS ORDERED: ONDANSETRON ODT 4 MG TAB.RAPDIS. PO ×2 (21:15)
[2017-09-02] MEDS: DICYCLOMINE HCL 10 MG CAPSULE PO ×2 (21:30)
[2017-09-02] MEDS: ERYTHROMYCIN BASE 250 MG TABLET PO ×2 (21:31)
[2017-09-02] MEDS: LACTOBACILLUS RHAMNOSUS GG 1 CAPSULE. PO ×2 (21:31)
[2017-09-02] MEDS: PANTOPRAZOLE IV PUSH 40 MG VIAL. IVP ×2 (22:00)
[2017-09-02] MEDS ORDERED: LORazepam 1 MG TABLET PO ×2 (22:30)
[2017-09-02] MEDS: ZOLPIDEM 5 MG TABLET. PO ×2 (22:32)
[2017-09-02] MEDS: fentaNYL PF VIAL 100 MCG/2 ML VIAL IV ×2 (22:33)
[2017-09-03] MEDS: fentaNYL PF VIAL 100 MCG/2 ML VIAL IV ×18 (01:37→22:57)
[2017-09-03] MEDS: ONDANSETRON PF 4 MG/2 ML VIAL. IV ×6 (04:08→22:56)
[2017-09-03] MEDS: PANTOPRAZOLE 40 MG TABLET.DR. PO ×2 (06:35)
[2017-09-03] MEDS: ERYTHROMYCIN BASE 250 MG TABLET PO ×4 (09:03→20:21)
[2017-09-03] MEDS: LACTOBACILLUS RHAMNOSUS GG 1 CAPSULE. PO ×4 (09:03→20:21)
[2017-09-03] MEDS: DICYCLOMINE HCL 10 MG CAPSULE PO ×6 (09:04→20:21)
[2017-09-03 14:46] LABS: NEG OBC UR NEG; POS OBC UR POS; U PREG PATIENT NEGATIVE (NEG)
[2017-09-03] MEDS ORDERED: PROPOFOL 20 ML IV ×2 (15:00)
[2017-09-03] MEDS: IV RINGERS,LACTATED 1000ML 1,000 ML IV ×2 (15:06)
[2017-09-03] MEDS: ZOLPIDEM 5 MG TABLET. PO ×2 (21:09)
[2017-09-04] MEDS: fentaNYL PF VIAL 100 MCG/2 ML VIAL IV ×12 (01:29→13:32)
[2017-09-04] MEDS: IV RINGERS,LACTATED 1000ML 1,000 ML IV ×2 (04:20)
[2017-09-04] MEDS: PANTOPRAZOLE 40 MG TABLET.DR. PO ×2 (06:27)
[2017-09-04] MEDS: DICYCLOMINE HCL 10 MG CAPSULE PO ×4 (08:09→13:31)
[2017-09-04] MEDS: ERYTHROMYCIN BASE 250 MG TABLET PO ×2 (08:10)
[2017-09-04] MEDS: LACTOBACILLUS RHAMNOSUS GG 1 CAPSULE. PO ×2 (08:10)
[2017-09-04] MEDS: ONDANSETRON PF 4 MG/2 ML VIAL. IV ×2 (09:00)
[2017-09-04] MEDS: HEPARIN PF 500 UNIT/5 ML DISP.SYRIN. IV ×2 (15:15)
== END 2017-09-04 15:20 | disposition home or self-care (01) | DRG 392 ==
LOC: ER 13:08 → 5 NORTH 17:43
PROC: 0D758ZZ Dilation of Esophagus, Via Natural or Artificial Opening Endoscopic (ICD-10-PCS; principal; 2017-09-03 15:16)
DX: K22.2 Esophageal obstruction (principal); F32.9 Major depressive disorder, single episode, unspecified; K21.9 Gastro-esophageal reflux disease without esophagitis; G89.29 Other chronic pain; K57.90 Diverticulosis of intestine, part unspecified, without perforation or abscess without bleeding; K52.9 Noninfective gastroenteritis and colitis, unspecified; Z90.49 Acquired absence of other specified parts of digestive tract; Z98.84 Bariatric surgery status; Z82.49 Family history of ischemic heart disease and other diseases of the circulatory system; Z88.5 Allergy status to narcotic agent; Z88.8 Allergy status to other drugs, medicaments and biological substances; Z88.6 Allergy status to analgesic agent
CPT/HCPCS: 36415; 74177; 80053; 81001; 81025; 83690; 85025; 96374; 96375; 99285-25; G0379; J1170; J2405; J2704; J3010; J7120; Q9967

== ENCOUNTER 2017-09-20 12:09 | Inpatient (IN) | payer MEDICARE, OTHER ==
[2017-09-20] MEDS: IV NORMAL SALINE 1000ML BAG 1,000 ML IV ×3 (12:54→21:28)
[2017-09-20] MEDS: ONDANSETRON PF 4 MG/2 ML VIAL. IV ×3 (12:56→21:26)
[2017-09-20] MEDS: fentaNYL PF VIAL 100 MCG/2 ML VIAL IV ×5 (13:00→23:43)
[2017-09-20] MEDS: DEXTROSE 5% IV ×3 (13:02→20:41)
[2017-09-20] MEDS: ACETYLCYSTEINE IV ×3 (13:02→20:41)
[2017-09-20 13:22] LABS: ACETAMIN < 2 mcg/ml (10-30); SALIC 4.1 mg/dL (2.8-20.0)
[2017-09-20 13:23] LABS: ETHANOL < 10 mg/dL (0-10)
[2017-09-20 13:25] LABS: LACTIC ACID 1.2 mmol/L (0.4-2.0)
[2017-09-20 13:26] LABS: INR 1.2 (0.8-1.1); PARTIAL THROMBOPLASTIN TIME 32 SEC (24-38); PROTHROMBIN TIME PATIENT 14.3 SEC (11.7-14.0)
[2017-09-20 13:33] LABS: ANION GAP 11 (6-14); BLOOD UREA NITROGEN 20 mg/dL (7-20); BUN/CREATININE RATIO 25 (6-20); CALCIUM 8.4 mg/dL (8.5-10.1); CARBON DIOXIDE 26 mmol/L (21-32); CHLORIDE 98 mmol/L (98-107); CREATININE 0.8 mg/dL (0.6-1.0); GFR 78.7; GLUCOSE 95 mg/dL (70-99); POTASSIUM 4.5 mmol/L (3.5-5.1); SODIUM 135 mmol/L (136-145)
[2017-09-20 13:37] LABS: BASO % 0 % (0-3); EOS % 0 % (0-3); HEMATOCRIT 34.8 % (36.0-47.0); HEMOGLOBIN 11.1 g/dL (12.0-15.5); LYMPH # 0.3 x10^3/uL (1.0-4.8); LYMPH % 3 % (24-48); MEAN CORPUSCULAR HEMOGLOBIN 26 pg (25-35); MEAN CORPUSCULAR HGB CONC 32 g/dL (31-37); MEAN CORPUSCULAR VOLUME 80 fL (79-100); MONO # 0.5 x10^3/uL (0.0-1.1); MONO % 5 % (0-9); NEUT # 9.1 x10^3uL (1.8-7.7); NEUT % 91 % (31-73); PLATELET COUNT 448 x10^3/uL (140-400); RED BLOOD COUNT 4.34 x10^6/uL (3.50-5.40)
[2017-09-20 13:39] LABS: ADD MAN DIFF? YES
[2017-09-20 13:40] LABS: ALBUMIN 3.6 g/dL (3.4-5.0); ALK PHOS 134 U/L (46-116); ALT (SGPT) 1466 U/L (14-59); AST (SGOT) 880 U/L (15-37); CREATINE KINASE 47 U/L (26-192); LIPASE 49 U/L (73-393); MAGNESIUM 2.2 mg/dL (1.8-2.4); TOTAL BILIRUBIN 0.9 mg/dL (0.2-1.0); TOTAL PROTEIN 7.3 g/dL (6.4-8.2)
[2017-09-20] MEDS ORDERED: ONDANSETRON PF 4 MG/2 ML VIAL. IV (14:00)
[2017-09-20] MEDS ORDERED: PROCHLORPERAZINE 10 MG/2 ML VIAL. IV (15:00)
[2017-09-20] MEDS ORDERED: ONDANSETRON ODT 4 MG TAB.RAPDIS. PO ×2 (15:00→15:30)
[2017-09-20] MEDS ORDERED: LORazepam 1 MG TABLET PO (15:00)
[2017-09-20] MEDS: PANTOPRAZOLE 40 MG TABLET.DR. PO (16:30)
[2017-09-20 17:23] LABS: % LYMPHS 6 % (24-48); % MONOS 9 % (0-10); % SEGS 85 % (35-66); PLATELET CLUMP PRESENT; PLT ESTIMATE INCREASED (ADEQUATE); POLYCHROMASIA SLIGHT
[2017-09-20 17:24] LABS: OVALOCYTES OCC
[2017-09-20] MEDS ORDERED: NON FORMULARY ITEM (Omeprazole Magnesium (Prilosec Otc) 40 MG) PO (21:00)
[2017-09-20] MEDS: DICYCLOMINE HCL 10 MG CAPSULE PO (21:00)
[2017-09-20] MEDS: ZOLPIDEM 5 MG TABLET. PO (21:29)
[2017-09-20] MEDS: LACTOBACILLUS RHAMNOSUS GG 1 CAPSULE. PO (21:29)
[2017-09-20] MEDS: ERYTHROMYCIN BASE 250 MG TABLET PO (21:29)
[2017-09-21 00:44] LABS: ALK PHOS 119 U/L (46-116); ANION GAP 10 (6-14); BLOOD UREA NITROGEN 11 mg/dL (7-20); CALCIUM 7.7 mg/dL (8.5-10.1); CARBON DIOXIDE 25 mmol/L (21-32); CHLORIDE 101 mmol/L (98-107); CREATININE 0.7 mg/dL (0.6-1.0); DIRECT BILIRUBIN 0.4 mg/dL (0.0-0.2); GFR 91.8; GLUCOSE 113 mg/dL (70-99); POTASSIUM 3.6 mmol/L (3.5-5.1); SODIUM 136 mmol/L (136-145); TOTAL BILIRUBIN 0.8 mg/dL (0.2-1.0); TOTAL PROTEIN 6.6 g/dL (6.4-8.2)
[2017-09-21 01:05] LABS: ALT (SGPT) 2946 U/L (14-59); AST (SGOT) 2059 U/L (15-37)
[2017-09-21] MEDS: fentaNYL PF VIAL 100 MCG/2 ML VIAL IV ×9 (02:15→22:48)
[2017-09-21] MEDS: ONDANSETRON PF 4 MG/2 ML VIAL. IV ×3 (04:18→18:03)
[2017-09-21] MEDS: IV NORMAL SALINE 1000ML BAG 1,000 ML IV ×3 (04:19→16:00)
[2017-09-21] MEDS: PANTOPRAZOLE 40 MG TABLET.DR. PO ×2 (06:30→16:00)
[2017-09-21 06:42] LABS: ADD MAN DIFF? NO
[2017-09-21 06:45] LABS: BILIRUBIN,URINE NEGATIVE (NEG); COLOR,URINE YELLOW; GLUCOSE,URINE NEGATIVE (NEG); NITRITE,URINE NEGATIVE (NEG); PROTEIN,URINE NEGATIVE (NEG-TRACE)
[2017-09-21 06:51] LABS: BASO % 1 % (0-3); EOS % 0 % (0-3); HEMATOCRIT 32.4 % (36.0-47.0); HEMOGLOBIN 10.2 g/dL (12.0-15.5); LYMPH # 0.3 x10^3/uL (1.0-4.8); LYMPH % 3 % (24-48); MEAN CORPUSCULAR HEMOGLOBIN 26 pg (25-35); MEAN CORPUSCULAR HGB CONC 31 g/dL (31-37); MEAN CORPUSCULAR VOLUME 82 fL (79-100); MONO # 0.6 x10^3/uL (0.0-1.1); MONO % 7 % (0-9); NEUT # 7.7 x10^3uL (1.8-7.7); NEUT % 89 % (31-73); PLATELET COUNT 288 x10^3/uL (140-400); RED BLOOD COUNT 3.98 x10^6/uL (3.50-5.40); WHITE BLOOD COUNT 8.6 x10^3/uL (4.0-11.0)
[2017-09-21 06:52] LABS: AMPHETAMINE/METHAMPHETAMINE NEG (NEG); BARBITURATES NEG (NEG)
[2017-09-21 06:53] LABS: BENZODIAZEPINES NEG (NEG); CANNABINOIDS POS (NEG); COCAINE NEG (NEG); ETHANOL, URINE NEG (NEG); METHADONE NEG (NEG); OPIATES POS (NEG); PHENCYCLIDINE NEG (NEG)
[2017-09-21 06:54] LABS: SQUAMOUS EPITHELIAL CELL,UR FEW /LPF
[2017-09-21 06:58] LABS: BACTERIA,URINE MODERATE /HPF (0-FEW); CLARITY,URINE CLEAR; RBC,URINE OCC /HPF (0-2)
[2017-09-21 07:23] LABS: ALBUMIN 2.8 g/dL (3.4-5.0); ALBUMIN/GLOBULIN RATIO 0.8 (1.0-1.7); ALK PHOS 112 U/L (46-116); ANION GAP 6 (6-14); BLOOD UREA NITROGEN 8 mg/dL (7-20); BUN/CREATININE RATIO 13 (6-20); CALCIUM 7.8 mg/dL (8.5-10.1); CARBON DIOXIDE 25 mmol/L (21-32); CHLORIDE 104 mmol/L (98-107); CREATININE 0.6 mg/dL (0.6-1.0); GFR 109.6; GLUCOSE 108 mg/dL (70-99); POTASSIUM 3.6 mmol/L (3.5-5.1); SODIUM 135 mmol/L (136-145); TOTAL BILIRUBIN 0.8 mg/dL (0.2-1.0); TOTAL PROTEIN 6.1 g/dL (6.4-8.2)
[2017-09-21 07:25] LABS: ALT (SGPT) 2789 U/L (14-59); AST (SGOT) 1495 U/L (15-37)
[2017-09-21] MEDS: LACTOBACILLUS RHAMNOSUS GG 1 CAPSULE. PO ×2 (09:00→20:38)
[2017-09-21] MEDS: DICYCLOMINE HCL 10 MG CAPSULE PO ×3 (09:00→20:38)
[2017-09-21] MEDS: ERYTHROMYCIN BASE 250 MG TABLET PO ×2 (09:05→20:38)
[2017-09-21 12:40] LABS: INR 1.5 (0.8-1.1); PROTHROMBIN TIME PATIENT 16.9 SEC (11.7-14.0)
[2017-09-21 12:45] LABS: ANION GAP 9 (6-14); BLOOD UREA NITROGEN 6 mg/dL (7-20); CALCIUM 7.8 mg/dL (8.5-10.1); CARBON DIOXIDE 23 mmol/L (21-32); CHLORIDE 101 mmol/L (98-107); CREATININE 0.5 mg/dL (0.6-1.0); GFR 135.3; GLUCOSE 121 mg/dL (70-99); POTASSIUM 3.5 mmol/L (3.5-5.1); SODIUM 133 mmol/L (136-145)
[2017-09-21 12:48] LABS: ALT (SGPT) 2510 U/L (14-59); AST (SGOT) 1072 U/L (15-37)
[2017-09-21] MEDS: DEXTROSE 5% IV (18:03)
[2017-09-21] MEDS: ACETYLCYSTEINE IV (18:03)
[2017-09-21] MEDS: ZOLPIDEM 5 MG TABLET. PO (20:38)
[2017-09-22] MEDS: fentaNYL PF VIAL 100 MCG/2 ML VIAL IV ×10 (01:22→22:52)
[2017-09-22] MEDS: IV NORMAL SALINE 1000ML BAG 1,000 ML IV ×3 (03:30→21:00)
[2017-09-22 05:03] LABS: ADD MAN DIFF? NO
[2017-09-22 05:14] LABS: BASO % 1 % (0-3); EOS # 0.1 x10^3/uL (0.0-0.7); EOS % 3 % (0-3); HEMATOCRIT 29.8 % (36.0-47.0); HEMOGLOBIN 9.6 g/dL (12.0-15.5); LYMPH # 0.8 x10^3/uL (1.0-4.8); LYMPH % 23 % (24-48); MEAN CORPUSCULAR HEMOGLOBIN 26 pg (25-35); MEAN CORPUSCULAR HGB CONC 32 g/dL (31-37); MEAN CORPUSCULAR VOLUME 81 fL (79-100); MONO # 0.5 x10^3/uL (0.0-1.1); MONO % 13 % (0-9); NEUT # 2.1 x10^3uL (1.8-7.7); NEUT % 60 % (31-73); PLATELET COUNT 272 x10^3/uL (140-400); RED BLOOD COUNT 3.69 x10^6/uL (3.50-5.40); RED CELL DISTRIBUTION WIDTH 16.5 % (11.5-14.5); WHITE BLOOD COUNT 3.6 x10^3/uL (4.0-11.0)
[2017-09-22 05:18] LABS: INR 1.3 (0.8-1.1)
[2017-09-22 05:41] LABS: ALBUMIN 2.5 g/dL (3.4-5.0); ALK PHOS 94 U/L (46-116); ANION GAP 6 (6-14); AST (SGOT) 478 U/L (15-37); BLOOD UREA NITROGEN 3 mg/dL (7-20); CALCIUM 7.8 mg/dL (8.5-10.1); CARBON DIOXIDE 22 mmol/L (21-32); CHLORIDE 106 mmol/L (98-107); CREATININE 0.5 mg/dL (0.6-1.0); DIRECT BILIRUBIN 0.2 mg/dL (0.0-0.2); GFR 135.3; GLUCOSE 95 mg/dL (70-99); POTASSIUM 3.8 mmol/L (3.5-5.1); SODIUM 134 mmol/L (136-145); TOTAL BILIRUBIN 0.4 mg/dL (0.2-1.0)
[2017-09-22 05:48] LABS: ALT (SGPT) 1880 U/L (14-59)
[2017-09-22] MEDS ORDERED: DEXTROSE 5% IV (06:30)
[2017-09-22] MEDS ORDERED: ACETYLCYSTEINE IV (06:30)
[2017-09-22] MEDS: PANTOPRAZOLE 40 MG TABLET.DR. PO ×2 (06:46→16:10)
[2017-09-22] MEDS: ERYTHROMYCIN BASE 250 MG TABLET PO (08:36)
[2017-09-22] MEDS: DICYCLOMINE HCL 10 MG CAPSULE PO ×3 (08:36→20:40)
[2017-09-22] MEDS: ONDANSETRON PF 4 MG/2 ML VIAL. IV ×2 (08:40→18:32)
[2017-09-22] MEDS: ACETYLCYSTEINE IV (08:49)
[2017-09-22] MEDS: DEXTROSE 5% IV (08:49)
[2017-09-22] MEDS: LACTOBACILLUS RHAMNOSUS GG 1 CAPSULE. PO ×2 (08:50→20:40)
[2017-09-22] MEDS: ZOLPIDEM 5 MG TABLET. PO (20:40)
[2017-09-23 00:10] LABS: INR 1.1 (0.8-1.1); PROTHROMBIN TIME PATIENT 13.8 SEC (11.7-14.0)
[2017-09-23 00:23] LABS: AST (SGOT) 176 U/L (15-37)
[2017-09-23 00:24] LABS: ALT (SGPT) 1178 U/L (14-59)
[2017-09-23] MEDS: fentaNYL PF VIAL 100 MCG/2 ML VIAL IV ×10 (01:00→21:59)
[2017-09-23] MEDS: ONDANSETRON PF 4 MG/2 ML VIAL. IV ×2 (05:12→11:55)
[2017-09-23] MEDS: IV NORMAL SALINE 1000ML BAG 1,000 ML IV ×3 (05:14→23:59)
[2017-09-23 05:18] LABS: INR 1.2 (0.8-1.1); PROTHROMBIN TIME PATIENT 14.1 SEC (11.7-14.0)
[2017-09-23 05:39] LABS: ALBUMIN 2.5 g/dL (3.4-5.0); ALK PHOS 93 U/L (46-116); ALT (SGPT) 1125 U/L (14-59); AST (SGOT) 147 U/L (15-37); DIRECT BILIRUBIN 0.1 mg/dL (0.0-0.2); TOTAL BILIRUBIN 0.2 mg/dL (0.2-1.0); TOTAL PROTEIN 5.6 g/dL (6.4-8.2)
[2017-09-23] MEDS: PANTOPRAZOLE 40 MG TABLET.DR. PO ×2 (07:38→16:36)
[2017-09-23] MEDS: LACTOBACILLUS RHAMNOSUS GG 1 CAPSULE. PO ×2 (09:09→21:32)
[2017-09-23] MEDS: DICYCLOMINE HCL 10 MG CAPSULE PO ×3 (09:09→21:32)
[2017-09-23] MEDS: ZOLPIDEM 5 MG TABLET. PO (21:56)
[2017-09-24] MEDS: fentaNYL PF VIAL 100 MCG/2 ML VIAL IV ×10 (02:18→22:05)
[2017-09-24 04:55] LABS: PROTHROMBIN TIME PATIENT 12.8 SEC (11.7-14.0)
[2017-09-24 05:01] LABS: ALBUMIN 2.6 g/dL (3.4-5.0); ALK PHOS 101 U/L (46-116); ALT (SGPT) 790 U/L (14-59); AST (SGOT) 70 U/L (15-37); DIRECT BILIRUBIN 0.1 mg/dL (0.0-0.2); TOTAL BILIRUBIN 0.2 mg/dL (0.2-1.0); TOTAL PROTEIN 5.6 g/dL (6.4-8.2)
[2017-09-24] MEDS: DICYCLOMINE HCL 10 MG CAPSULE PO ×3 (07:48→21:03)
[2017-09-24] MEDS: PANTOPRAZOLE 40 MG TABLET.DR. PO ×2 (07:48→16:39)
[2017-09-24] MEDS: LACTOBACILLUS RHAMNOSUS GG 1 CAPSULE. PO ×2 (07:48→21:03)
[2017-09-24] MEDS: ONDANSETRON PF 4 MG/2 ML VIAL. IV ×2 (07:48→15:02)
[2017-09-24] MEDS: IV NORMAL SALINE 1000ML BAG 1,000 ML IV ×2 (12:45→21:05)
[2017-09-24] MEDS: ZOLPIDEM 5 MG TABLET. PO (21:03)
[2017-09-25] MEDS: fentaNYL PF VIAL 100 MCG/2 ML VIAL IV ×7 (00:11→14:55)
[2017-09-25] MEDS: IV NORMAL SALINE 1000ML BAG 1,000 ML IV (05:58)
[2017-09-25] MEDS: ONDANSETRON PF 4 MG/2 ML VIAL. IV ×2 (09:02→14:54)
[2017-09-25] MEDS: LACTOBACILLUS RHAMNOSUS GG 1 CAPSULE. PO (09:03)
[2017-09-25] MEDS: PANTOPRAZOLE 40 MG TABLET.DR. PO (09:03)
[2017-09-25] MEDS: DICYCLOMINE HCL 10 MG CAPSULE PO ×2 (09:03→14:54)
[2017-09-25] MEDS: HEPARIN PF 500 UNIT/5 ML DISP.SYRIN. IV (15:02)
== END 2017-09-25 15:00 | disposition home or self-care (01) | DRG 918 ==
LOC: ER 12:09 → ED HOLD 13:55 → 4 NORTH 17:11
DX: T39.1X2A Poisoning by 4-Aminophenol derivatives, intentional self-harm, initial encounter (principal); E44.1 Mild protein-calorie malnutrition; T88.6XXA Anaphylactic reaction due to adverse effect of correct drug or medicament properly administered, initial encounter; F12.90 Cannabis use, unspecified, uncomplicated; F32.9 Major depressive disorder, single episode, unspecified; T39.8X5A Adverse effect of other nonopioid analgesics and antipyretics, not elsewhere classified, initial encounter; G43.909 Migraine, unspecified, not intractable, without status migrainosus; K21.9 Gastro-esophageal reflux disease without esophagitis; K22.2 Esophageal obstruction; K57.90 Diverticulosis of intestine, part unspecified, without perforation or abscess without bleeding; K27.9 Peptic ulcer, site unspecified, unspecified as acute or chronic, without hemorrhage or perforation; G89.29 Other chronic pain; N83.209 Unspecified ovarian cyst, unspecified side; Z59.0 Homelessness; Z82.49 Family history of ischemic heart disease and other diseases of the circulatory system; Z90.49 Acquired absence of other specified parts of digestive tract; Z98.84 Bariatric surgery status; Z68.22 Body mass index [BMI] 22.0-22.9, adult; Z88.6 Allergy status to analgesic agent; Z88.1 Allergy status to other antibiotic agents; Z88.8 Allergy status to other drugs, medicaments and biological substances
CPT/HCPCS: 36415; 80048; 80053; 80076; 80307; 80329; 81001; 82550; 83605; 83690; 83735; 84450; 84460; 85007; 85025; 85610; 85730; 87086; 93005; 96365; 96366; 96375; 96376; 99285; 99285-25; G0480; J0132; J2405; J3010; J7030

== ENCOUNTER 2017-10-13 15:09 | Emergency (ER) | payer MEDICARE, OTHER ==
[2017-10-13] MEDS: ONDANSETRON ODT 4 MG TAB.RAPDIS. PO (16:17)
== END 2017-10-13 17:54 | disposition home or self-care (01) ==
LOC: ER 15:09
DX: R51 Headache (principal); M43.6 Torticollis; F32.9 Major depressive disorder, single episode, unspecified; K21.9 Gastro-esophageal reflux disease without esophagitis; G43.909 Migraine, unspecified, not intractable, without status migrainosus; G89.29 Other chronic pain; F12.10 Cannabis abuse, uncomplicated; Z90.49 Acquired absence of other specified parts of digestive tract; Z98.84 Bariatric surgery status; Z88.8 Allergy status to other drugs, medicaments and biological substances; Z88.5 Allergy status to narcotic agent; Z88.6 Allergy status to analgesic agent
CPT/HCPCS: 70450; 99284; Q0162

== ENCOUNTER 2017-11-08 11:17 | Emergency (ER) | payer MEDICARE, OTHER ==
[2017-11-08 11:38] LABS: URINE HCG POC HCG NEGATIVE (Negative)
[2017-11-08 11:44] LABS: BILIRUBIN,URINE NEGATIVE (NEG); CLARITY,URINE CLEAR; COLOR,URINE YELLOW; GLUCOSE,URINE NEGATIVE (NEG); NITRITE,URINE NEGATIVE (NEG); PROTEIN,URINE NEGATIVE (NEG-TRACE); UROBILINOGEN,URINE 0.2 mg/dL (0.2 mg/dL)
[2017-11-08 11:55] LABS: BACTERIA,URINE 0 /HPF (0-FEW); RBC,URINE 0 /HPF (0-2); SQUAMOUS EPITHELIAL CELL,UR FEW /LPF; WBC,URINE 0 /HPF (0-4)
[2017-11-08 12:10] LABS: ADD MAN DIFF? NO
[2017-11-08] MEDS: ONDANSETRON PF 4 MG/2 ML VIAL. IV ×3 (12:14→17:18)
[2017-11-08 12:16] LABS: BASO % 1 % (0-3); EOS % 0 % (0-3); HEMATOCRIT 37.7 % (36.0-47.0); HEMOGLOBIN 11.8 g/dL (12.0-15.5); LYMPH # 0.7 x10^3/uL (1.0-4.8); LYMPH % 9 % (24-48); MEAN CORPUSCULAR HEMOGLOBIN 24 pg (25-35); MEAN CORPUSCULAR HGB CONC 31 g/dL (31-37); MEAN CORPUSCULAR VOLUME 78 fL (79-100); MONO # 0.3 x10^3/uL (0.0-1.1); MONO % 5 % (0-9); NEUT # 6.1 x10^3uL (1.8-7.7); NEUT % 85 % (31-73); PLATELET COUNT 425 x10^3/uL (140-400); RED BLOOD COUNT 4.84 x10^6/uL (3.50-5.40); RED CELL DISTRIBUTION WIDTH 15.9 % (11.5-14.5); WHITE BLOOD COUNT 7.2 x10^3/uL (4.0-11.0)
[2017-11-08 12:23] LABS: ANION GAP 11 (6-14); BLOOD UREA NITROGEN 9 mg/dL (7-20); BUN/CREATININE RATIO 11 (6-20); CALCIUM 9.5 mg/dL (8.5-10.1); CARBON DIOXIDE 26 mmol/L (21-32); CHLORIDE 104 mmol/L (98-107); CREATININE 0.8 mg/dL (0.6-1.0); GFR 78.7; GLUCOSE 114 mg/dL (70-99); POTASSIUM 3.6 mmol/L (3.5-5.1); SODIUM 141 mmol/L (136-145)
[2017-11-08 12:29] LABS: ALBUMIN 4.2 g/dL (3.4-5.0); ALK PHOS 112 U/L (46-116); ALT (SGPT) 23 U/L (14-59); AST (SGOT) 18 U/L (15-37); TOTAL BILIRUBIN 0.3 mg/dL (0.2-1.0); TOTAL PROTEIN 8.4 g/dL (6.4-8.2)
[2017-11-08 13:16] LABS: FECAL OB PT NEGATIVE (NEG); NEG OBC FOB NEG; POS OBC FOB POS
[2017-11-08] MEDS: fentaNYL PF VIAL 100 MCG/2 ML VIAL IV ×3 (13:58→18:02)
[2017-11-08] MEDS ORDERED: IOHEXOL 240 MG/ML 50ML VIAL. PO (14:15)
[2017-11-08] MEDS ORDERED: CONTRAST GIVEN MC (14:15)
[2017-11-08] MEDS: IOHEXOL 300 MG/ML 100ML VIAL. IV (15:38)
== END 2017-11-08 18:05 | disposition short-term general hospital (02) ==
LOC: ER 11:17
DX: K56.7 Ileus, unspecified (principal); F32.9 Major depressive disorder, single episode, unspecified; K21.9 Gastro-esophageal reflux disease without esophagitis; F12.10 Cannabis abuse, uncomplicated; G89.29 Other chronic pain; G43.909 Migraine, unspecified, not intractable, without status migrainosus; Z98.84 Bariatric surgery status; Z90.49 Acquired absence of other specified parts of digestive tract; Z98.890 Other specified postprocedural states; Z88.5 Allergy status to narcotic agent; Z88.8 Allergy status to other drugs, medicaments and biological substances; Z88.6 Allergy status to analgesic agent
CPT/HCPCS: 36415; 74022; 74177; 80053; 81001; 81025; 82274; 85025; 96374; 96375; 96376; 99285-25; J2405; J3010; Q9967

== ENCOUNTER 2018-05-01 17:21 | Emergency (ER) | payer MEDICARE ==
[~2018-05-01] VITALS: Ht 172.7 cm; Wt 76.2 kg
[~2018-05-01 17:21] MED LIST changes: +BUTA1CAP31 PO; +DICY10CA3 PO; +DICY10CA53 PO; +ERYT250C8 PO; -FERR-26 PO; +FERR325T14 PO; +HYDR-2758 PO; +LACT1CAP19 PO; +LORA-434 PO; +OMEP20TA63 PO; +ONDA4TAB10 PO; +ONDA8TAB12 PO; +ONDA8TAB9 PO; +OXYC-323 PO; +OXYC-411 PO; -OXYC1TAB9 PO; +ZOLP5TAB PO
[2018-05-01] MEDS ORDERED: IV NORMAL SALINE 1000ML BAG 1,000 ML IV SCH (19:35)
--- NOTE | 2018-05-01 19:42 | PHYS DOC ---
Past Medical History Past Medical History: Depression, Diverticulosis, GERD, GI Bleed, Migraines, P.U.D., Other Additional Past Medical Histor: chronic abd pain, accidental overdose Past Surgical History: Appendectomy, Cholecystectomy, Gastric Bypass, Other Additional Past Surgical Histo: hernia, ovarian cyst, low body lift, 3 abd laps , 2 peg tubes,reversal, PORT Alcohol Use: None Drug Use: Marijuana Adult General Chief Complaint Chief Complaint: RECTAL BLEED HPI HPI Patient is a 42-year-old female who presents to the emergency department for evaluation. She states that this morning, she woke up with nausea and stomach cramping, and had some diarrhea. She states she vomited once earlier this morning. She states that she did not have any bloody emesis. She reports pain in the mid section of her abdomen, in her umbilical area. She states that she is has loose stools throughout the day, but not true diarrhea. Her stools have been grossly bloody. The patient's nurse reported to me that prior to my assessment of the patient, the patient did provide a fairly formed brown stool which seemed to have some blood streaking coated around the side of it. The patient has not had any fevers or chills. The patient states that she has had problems with GI bleeding in the past and had several episodes of colonoscopies and upper endoscopies. She states the last episode that she had was investigated about a year ago at another facility, where she had upper and lower endoscopies and was found to have some esophagitis and gastritis, but her colonoscopy was normal. She states that the blood in her stool today has been bright red. She has not had any fevers or chills. She denies any chest pain shortness of breath, numbness, weakness, significant dizziness or lightheadedness. There are no alleviating, or exacerbating factors to her symptoms otherwise. She states that she has had problems since several bariatric surgery that she has had in the past. Review of Systems Review of Systems Constitutional: Denies fever or chills [] Eyes: Denies change in visual acuity, redness, or eye pain [] HENT: Denies nasal congestion or sore throat [] Respiratory: Denies cough or shortness of breath [] Cardiovascular: The patient denies any shortness of breath, chest pain, palpitations, or orthopnea[] GI: As per history of present illness[] : Denies dysuria or hematuria. The patient is postmenopausal, has not had a menstrual period in 6 years. [] Musculoskeletal: Denies back pain or joint pain [] Integument: Denies rash or skin lesions [] Neurologic: Denies headache, focal weakness or sensory changes [] Endocrine: Denies polyuria or polydipsia [] All other systems were reviewed and found to be within normal limits, except as documented in this note. Current Medications Current Medications Current Medications Medications (Trade) Dose Ordered Sig/Ben Start Time Stop Time Status Last Admin Dose Admin Fentanyl Citrate (Fentanyl 2ml Vial) 50 mcg 1X ONCE 05/01/18 20:45 05/01/18 20:46 DC 05/01/18 20:54 50 MCG Ondansetron HCl (Zofran) 4 mg 1X ONCE 05/01/18 20:45 05/01/18 20:46 DC 05/01/18 20:54 4 MG Sodium Chloride 1,000 ml @ 1,000 mls/hr Q1H 05/01/18 19:35 05/01/18 20:34 DC 05/01/18 20:10 1,000 MLS/HR Allergies Allergies Allergies Coded Allergies Type Severity Reaction Last Updated Verified diphenhydramine Allergy Severe hallucinations/ams 09/03/17 Yes promethazine Allergy Severe confusion/ams 09/03/17 Yes sumatriptan Allergy Severe ANAPHYLAXIS 09/03/17 Yes haloperidol Allergy Intermediate 09/03/17 Yes morphine Allergy Intermediate HIVES 09/03/17 Yes NSAIDS (Non-Steroidal Anti-Inflamma Adverse Reaction Severe bleeding. 09/03/17 Yes metoclopramide Adverse Reaction Intermediate 09/03/17 Yes prochlorperazine Adverse Reaction Intermediate 09/03/17 Yes Physical Exam Physical Exam PHYSICAL EXAM: CONSTITUTIONAL: Well developed, well nourished HEAD: normocephalic, atraumatic EENT: PERRL, EOMI. Conjunctivae normal color, sclerae non-icteric; moist mucous membranes. NECK: Supple, non-tender; no meningismus. LUNGS: Lungs CTA, breathing even and unlabored. Normal air movement. HEART: Regular rate and rhythm, no murmur CHEST: No deformity; non-tender ABDOMEN: The abdomen is soft, normal bowel sounds are present. There is mild tenderness to palpation in the mid center of the abdomen in the periumbilical area, without any other tenderness, rebound, or guarding. No masses or bruits. EXTREM: Normal ROM; no deformity, no calf tenderness. Normal pulses palpable in all extremities. There is no pedal edema. SKIN: No rash; no diaphoresis NEURO: Alert; normal speech and cognition; CN's grossly intact; strength grossly intact without focal deficit. BACK: No CVA TTP. RECTAL EXAM: There are no obvious external hemorrhoids or anal fissures. There is reddish/brown stool in the rectal vault which was sent for Hemoccult testing. Exam was performed in the presence of the patient's nurse acting as apartment leasing manager. Current Patient Data Vital Signs Vital Signs Date Time Temp Pulse Resp B/P (MAP) Pulse Ox O2 Delivery O2 Flow Rate FiO2 05/01/18 20:54 14 97 Room Air 05/01/18 19:20 98.3 88 115/81 (92) 98.3 Lab Values Laboratory Tests Test 05/01/18 19:06 05/01/18 20:05 Urine Collection Type Unknown Urine Color Yellow Urine Clarity Clear Urine pH 5.5 Urine Specific [place] 1.025 Urine Protein Negative mg/dL (NEG-TRACE) Urine Glucose (UA) Negative mg/dL (NEG) Urine Ketones (Stick) Negative mg/dL (NEG) Urine Blood Negative (NEG) Urine Nitrite Negative (NEG) Urine Bilirubin Negative (NEG) Urine Urobilinogen Dipstick 0.2 mg/dL (0.2 mg/dL) Urine Leukocyte Esterase Small (NEG) Urine RBC 0 /HPF (0-2) Urine WBC 1-4 /HPF (0-4) Urine Squamous Epithelial Cells Few /LPF Urine Bacteria Few /HPF (0-FEW) Urine Mucus Slight /LPF Stool Occult Blood Positive (NEG) White Blood Count 8.3 x10^3/uL (4.0-11.0) Red Blood Count 4.07 x10^6/uL (3.50-5.40) Hemoglobin 12.6 g/dL (12.0-15.5) Hematocrit 36.7 % (36.0-47.0) Mean Corpuscular Volume 90 fL (79-100) Mean Corpuscular Hemoglobin 31 pg (25-35) Mean Corpuscular Hemoglobin Concent 34 g/dL (31-37) Red Cell Distribution Width 14.4 % (11.5-14.5) Platelet Count 300 x10^3/uL (140-400) Neutrophils (%) (Auto) 71 % (31-73) Lymphocytes (%) (Auto) 20 % (24-48) L Monocytes (%) (Auto) 7 % (0-9) Eosinophils (%) (Auto) 1 % (0-3) Basophils (%) (Auto) 1 % (0-3) Neutrophils # (Auto) 5.9 x10^3uL (1.8-7.7) Lymphocytes # (Auto) 1.7 x10^3/uL (1.0-4.8) Monocytes # (Auto) 0.6 x10^3/uL (0.0-1.1) Eosinophils # (Auto) 0.1 x10^3/uL (0.0-0.7) Basophils # (Auto) 0.0 x10^3/uL (0.0-0.2) Prothrombin Time 13.6 SEC (11.7-14.0) Prothrombin Time INR 1.1 (0.8-1.1) PTT 34 SEC (24-38) Sodium Level 140 mmol/L (136-145) Potassium Level 3.9 mmol/L (3.5-5.1) Chloride Level 103 mmol/L (98-107) Carbon Dioxide Level 26 mmol/L (21-32) Anion Gap 11 (6-14) Blood Urea Nitrogen 16 mg/dL (7-20) Creatinine 0.9 mg/dL (0.6-1.0) Estimated GFR (Cockcroft-Gault) 68.3 BUN/Creatinine Ratio 18 (6-20) Glucose Level 92 mg/dL (70-99) Calcium Level 8.9 mg/dL (8.5-10.1) Total Bilirubin 0.3 mg/dL (0.2-1.0) Aspartate Amino Transferase (AST) 15 U/L (15-37) Alanine Aminotransferase (ALT) 17 U/L (14-59) Alkaline Phosphatase 82 U/L (46-116) Total Protein 7.0 g/dL (6.4-8.2) Albumin 3.9 g/dL (3.4-5.0) Albumin/Globulin Ratio 1.3 (1.0-1.7) Lipase 97 U/L (73-393) Laboratory Tests 9/27/18 20:05 Laboratory Tests 05/01/18 20:05 EKG EKG [] Radiology/Procedures Radiology/Procedures [] Course & Med Decision Making Course & Med Decision Making Pertinent Labs and Prior Imaging studies reviewed. (See chart for details) [8:55 PM: The patient's condition remained stable. She is feeling somewhat better at this time. I discussed the test results with the patient. She wishes to avoid hospitalization if possible. Her hemoglobin is higher than any of her recent values, and I do not think she warrants hospitalization. She has had numerous CT scans over the years and I do not feel that another CT scan at the diagnostic utility at this point. We discussed the risks of radiation and the patient also agrees that CT scan is not warranted at this point. Joint decision making was employed, as the risks and benefits were discussed. I also do not think that the patient warrants empiric anabiotic therapy as she has had problems with C. difficile in the past requiring a fecal transplant. She does, however, warrant close GI follow-up. She states she would like to see the local rf technician Dr. Boone, who she has seen in the past. I discussed the importance of close follow-up, and return precautions in detail with the patient.] Dragon Disclaimer Dragon Disclaimer This electronic medical record was generated, in whole or in part, using a voice recognition dictation system. Departure Departure Impression: Primary Impression: Rectal bleeding Disposition: 01 HOME, SELF-CARE Condition: STABLE Referrals: LEONEL BOONE MD Patient Instructions: Rectal Bleeding Additional Instructions: It is critically important that you obtain close outpatient follow-up with gastroenterology. Return to medical care for any new, or worsening symptoms, development of dizziness, lightheadedness, fevers significant bleeding, or any other new, or concerning symptoms. Scripts Ondansetron (ZOFRAN ODT) 4 Mg Tab.rapdis 1 TAB SL Q8HRS, #15 TAB Prov: LA HERNANDES MD 05/01/18 Acetaminophen With Codeine (TYLENOL WITH CODEINE #3 TABLET) 1 Each Tablet 1 TAB PO PRN Q6HRS PRN for PAIN, #15 TAB Prov: LA HERNANDES MD 05/01/18 LA HERNANDES MD May 01, 2018 19:42
[2018-05-01 19:46] LABS: BILIRUBIN,URINE NEGATIVE (NEG); CLARITY,URINE CLEAR; COLOR,URINE YELLOW; NITRITE,URINE NEGATIVE (NEG); PH,URINE 5.5; PROTEIN,URINE NEGATIVE (NEG-TRACE); UROBILINOGEN,URINE 0.2 mg/dL (0.2 mg/dL)
[2018-05-01 19:51] LABS: FECAL OB PT POSITIVE (NEG)
[2018-05-01 20:01] LABS: RBC,URINE 0 /HPF (0-2)
[2018-05-01 20:02] LABS: BACTERIA,URINE FEW /HPF (0-FEW); SQUAMOUS EPITHELIAL CELL,UR FEW /LPF
[2018-05-01 20:24] LABS: BASO % 1 % (0-3); EOS # 0.1 x10^3/uL (0.0-0.7); EOS % 1 % (0-3); HEMATOCRIT 36.7 % (36.0-47.0); HEMOGLOBIN 12.6 g/dL (12.0-15.5); LYMPH # 1.7 x10^3/uL (1.0-4.8); LYMPH % 20 % (24-48); MEAN CORPUSCULAR HEMOGLOBIN 31 pg (25-35); MEAN CORPUSCULAR HGB CONC 34 g/dL (31-37); MEAN CORPUSCULAR VOLUME 90 fL (79-100); MONO # 0.6 x10^3/uL (0.0-1.1); MONO % 7 % (0-9); NEUT # 5.9 x10^3uL (1.8-7.7); NEUT % 71 % (31-73); PLATELET COUNT 300 x10^3/uL (140-400); RED BLOOD COUNT 4.07 x10^6/uL (3.50-5.40); RED CELL DISTRIBUTION WIDTH 14.4 % (11.5-14.5); WHITE BLOOD COUNT 8.3 x10^3/uL (4.0-11.0)
[2018-05-01 20:30] VITALS: BP 108/55
[2018-05-01 20:35] LABS: CALCIUM 8.9 mg/dL (8.5-10.1); CREATININE 0.9 mg/dL (0.6-1.0); GFR 68.3; POTASSIUM 3.9 mmol/L (3.5-5.1); PROTHROMBIN TIME PATIENT 13.6 SEC (11.7-14.0)
[2018-05-01 20:42] LABS: ALBUMIN 3.9 g/dL (3.4-5.0); ALBUMIN/GLOBULIN RATIO 1.3 (1.0-1.7); TOTAL BILIRUBIN 0.3 mg/dL (0.2-1.0)
[2018-05-01] MEDS ORDERED: fentaNYL PF VIAL 100 MCG/2 ML VIAL IV ONE (20:45)
[2018-05-01] MEDS ORDERED: ONDANSETRON PF 4 MG/2 ML VIAL. IV ONE (20:45)
[2018-05-01] MEDS ORDERED: ONDA4TAB10 SL (20:59)
[2018-05-01] MEDS ORDERED: ACET-704 PO (20:59)
== END 2018-05-01 21:15 | disposition home or self-care (01) ==
LOC: ER 17:21
DX: K62.5 Hemorrhage of anus and rectum (principal); R11.10 Vomiting, unspecified; R19.7 Diarrhea, unspecified; K21.9 Gastro-esophageal reflux disease without esophagitis; G43.909 Migraine, unspecified, not intractable, without status migrainosus; G89.29 Other chronic pain; Z87.19 Personal history of other diseases of the digestive system; Z90.89 Acquired absence of other organs; Z90.49 Acquired absence of other specified parts of digestive tract; Z98.84 Bariatric surgery status; Z98.890 Other specified postprocedural states; Z88.6 Allergy status to analgesic agent; Z88.8 Allergy status to other drugs, medicaments and biological substances
CPT/HCPCS: 36415; 80053; 81001; 82274; 83690; 85025; 85610; 85730; 87045; 87086; 96361; 96374; 96375; 99284; J2405; J3010; J7030

== ENCOUNTER 2018-09-16 10:22 | Emergency (ER) | payer MEDICARE, OTHER ==
[~2018-09-16] VITALS: Ht 172.7 cm; Wt 70.8 kg
[~2018-09-16 10:22] MED LIST changes: +ACET-704 PO; +CARV12.511 PO; -CARV12.52 PO; -HYDR-2758 PO; +HYDR-2761 PO; -HYDR-2766 PO; +HYDR-2769 PO; +HYDR-3164 PO; -HYDR-971 PO; -HYDR15SO4 PO; +HYDR15SO6 PO; -OXYC-323 PO; +OXYC1TAB15 PO
[2018-09-16 11:15] LABS: BILIRUBIN,URINE NEGATIVE (NEG); CLARITY,URINE CLEAR; COLOR,URINE YELLOW; NITRITE,URINE NEGATIVE (NEG); PH,URINE 6.5; PROTEIN,URINE NEGATIVE (NEG-TRACE); UROBILINOGEN,URINE 0.2 mg/dL (0.2 mg/dL)
[2018-09-16 11:18] LABS: U PREG PATIENT NEGATIVE (NEG)
[2018-09-16 11:22] LABS: SQUAMOUS EPITHELIAL CELL,UR FEW /LPF
[2018-09-16 11:24] LABS: BACTERIA,URINE FEW /HPF (0-FEW); RBC,URINE RARE /HPF (0-2); WBC,URINE OCC /HPF (0-4)
[2018-09-16 11:39] LABS: BASO % 0 % (0-3); EOS % 0 % (0-3); HEMATOCRIT 42.7 % (36.0-47.0); HEMOGLOBIN 14.1 g/dL (12.0-15.5); LYMPH # 0.4 x10^3/uL (1.0-4.8); LYMPH % 7 % (24-48); MEAN CORPUSCULAR HEMOGLOBIN 30 pg (25-35); MEAN CORPUSCULAR HGB CONC 33 g/dL (31-37); MEAN CORPUSCULAR VOLUME 89 fL (79-100); MONO # 0.5 x10^3/uL (0.0-1.1); MONO % 8 % (0-9); NEUT # 5.5 x10^3uL (1.8-7.7); NEUT % 85 % (31-73); PLATELET COUNT 226 x10^3/uL (140-400); RED BLOOD COUNT 4.77 x10^6/uL (3.50-5.40); RED CELL DISTRIBUTION WIDTH 14.6 % (11.5-14.5); WHITE BLOOD COUNT 6.4 x10^3/uL (4.0-11.0)
[2018-09-16] MEDS: IV NORMAL SALINE 1000ML BAG 1,000 ML IV ONE (11:42)
[2018-09-16] MEDS: ONDANSETRON PF 4 MG/2 ML VIAL. IV ONE ×2 (11:46→13:00)
[2018-09-16 11:47] LABS: CALCIUM 9.3 mg/dL (8.5-10.1); CREATININE 0.8 mg/dL (0.6-1.0); GFR 78.3; POTASSIUM 3.6 mmol/L (3.5-5.1)
[2018-09-16] MEDS: fentaNYL PF VIAL 100 MCG/2 ML VIAL IV ONE (11:47)
[2018-09-16 11:53] LABS: ALBUMIN/GLOBULIN RATIO 1.1 (1.0-1.7); TOTAL BILIRUBIN 0.5 mg/dL (0.2-1.0); TOTAL PROTEIN 7.7 g/dL (6.4-8.2)
[2018-09-16] MEDS: IOHEXOL 300 MG/ML 100ML VIAL. IV ONE (11:58)
[2018-09-16] MEDS ORDERED: CONTRAST GIVEN. MC PRN (12:00)
--- NOTE | 2018-09-16 12:24 | RAD ---
CT study of the abdomen and pelvis with contrast Clinical indications: Abdominal pain. Complicated surgical history. Possible bowel obstruction. TECHNIQUE: After IV infusion of 75 cc of Omnipaque 300, helical CT scanning of the abdomen and pelvis was performed. No GI contrast was administered. This may decrease the sensitivity to detect GI tract pathology. PQRS compliance Statement One or more of the following individualized dose reduction techniques were utilized for this study: 1. Automated exposure control 2. Adjustment of the mA and/or kV according to patient size 3. Use of iterative reconstruction technique COMPARISON: November 08, 2017. FINDINGS: The liver and spleen and pancreas are unremarkable. The gallbladder is surgically absent. No extra hepatic biliary ductal dilatation is seen. No adrenal mass is evident. Both kidneys are normal without hydronephrosis or hydroureter. Urinary bladder wall is smooth. No uterine mass is seen. No dominant ovarian cyst or mass is evident. No focal aneurysmal dilatation of the abdominal aorta is seen. No enlarged abdominal or pelvic lymphadenopathy is evident. Postoperative changes of the stomach are seen. There is wall thickening of the antrum of the stomach. Postsurgical changes of the bowel within the left upper quadrant of the abdomen is seen. No obstructive bowel pattern is seen. There is wall thickening of the sigmoid colon and descending colon which may be due to incomplete distention. Certainly, this may be seen with a colitis if there are clinical findings of such. No diverticulitis is seen. The appendix is not readily evident. There are no secondary CT findings of appendicitis. No free fluid or free air or mesenteric edema is seen. No lung base consolidation is seen. No lytic process is seen. IMPRESSION: There is wall thickening of the sigmoid colon and descending colon. This may be due to incomplete distention but may be seen with colitis if there are clinical findings of such. This has been seen previously on the study of November 08, 2017 but the transverse colon wall thickening seen previously has resolved. Wall thickening of the antrum of the stomach. This may be secondary to incomplete distention but could be seen with gastritis or peptic ulcer disease. No free air or free fluid is evident. Electronically signed by: Robson Miramontes MD (09/16/2018 12:22 PM) [facility]
[2018-09-16] MEDS ORDERED: ONDA4TAB7 PO (12:55)
--- NOTE | 2018-09-16 12:55 | PHYS DOC ---
Past Medical History Past Medical History: Depression, Diverticulosis, GERD, GI Bleed, Migraines, P.U.D., Other Additional Past Medical Histor: chronic abd pain, accidental overdose Past Surgical History: Appendectomy, Cholecystectomy, Gastric Bypass, Other Additional Past Surgical Histo: hernia, ovarian cyst, low body lift, 3 abd laps , 2 peg tubes,reversal, PORT Alcohol Use: None Drug Use: Marijuana Adult General Chief Complaint Chief Complaint: ABDOMINAL PAIN [place] [employer] HPI Patient is a 42 year old f who presents to the ED for evaluation of abdominal pain, nausea, vomiting. Patient with history of chronic abdominal pain and complicated abdominal surgical history. Patient with history of gastric bypass greater than 10 years ago. Patient reports that she had significant complications after the surgery required multiple X-laps and further surgeries. Patient eventually had reversal of her Meg-en-Y in 2013 is since done better. Patient does have waxing waning chronic epigastric/mid abdominal pain. Patient states she does have some chronic nausea vomiting. Patient reports increased symptoms over the past 2-3 days. Patient reports diffuse abdominal cramping pain , 8-10 out of 10, waxing waning, positive nausea, positive vomiting. No GI bleed symptoms. No fever. Has Zofran to take at home but recently ran out. Does not currently have a primary care physician and has not followed recently with any physician for preventative care. She states that she thought she was constipated has recently taken [id number] stool softeners. Reports multiple soft stools recently. Denies any history of bowel obstructions. Review of Systems Review of Systems Constitutional: Denies fever or chills [] Eyes: Denies change in visual acuity, redness, or eye pain [] HENT: Denies nasal congestion or sore throat [] Respiratory: Denies cough or shortness of breath [] Cardiovascular: No additional information not addressed in HPI [] GI: Denies abdominal pain, nausea, vomiting, bloody stools or diarrhea [] : Denies dysuria or hematuria [] Musculoskeletal: Denies back pain or joint pain [] Integument: Denies rash or skin lesions [] Neurologic: Denies headache, focal weakness or sensory changes [] Endocrine: Denies polyuria or polydipsia [] All other systems were reviewed and found to be within normal limits, except as documented in this note. Current Medications Current Medications Current Medications Medications (Trade) Dose Ordered Sig/Ben Start Time Stop Time Status Last Admin Dose Admin Fentanyl Citrate (Fentanyl 2ml Vial) 50 mcg 1X ONCE 09/16/18 11:00 09/16/18 11:02 DC 09/16/18 11:47 50 MCG Info (CONTRAST GIVEN -- Rx MONITORING) 1 each PRN DAILY PRN 09/16/18 12:00 09/18/18 11:59 Iohexol (Omnipaque 300 Mg/ml) 75 ml 1X ONCE 09/16/18 12:00 09/16/18 12:01 DC 09/16/18 11:58 75 ML Ondansetron HCl (Zofran) 8 mg 1X ONCE 09/16/18 11:00 09/16/18 11:02 DC 09/16/18 11:46 8 MG Sodium Chloride 1,000 ml @ 1,000 mls/hr 1X ONCE 09/16/18 11:00 09/16/18 11:59 DC 09/16/18 11:42 1,000 MLS/HR Allergies Allergies Allergies Coded Allergies Type Severity Reaction Last Updated Verified diphenhydramine Allergy Severe hallucinations/ams 09/03/17 Yes promethazine Allergy Severe confusion/ams 09/03/17 Yes sumatriptan Allergy Severe ANAPHYLAXIS 09/03/17 Yes haloperidol Allergy Intermediate 09/03/17 Yes morphine Allergy Intermediate HIVES 09/03/17 Yes NSAIDS (Non-Steroidal Anti-Inflamma Adverse Reaction Severe bleeding. 09/03/17 Yes metoclopramide Adverse Reaction Intermediate 09/03/17 Yes prochlorperazine Adverse Reaction Intermediate 09/03/17 Yes Physical Exam Physical Exam Constitutional: Well developed, well nourished, HENT: Normocephalic, atraumatic, Eyes: PERRLA, EOMI, conjunctiva normal, no discharge. [] Neck: Normal range of motion, no tenderness, supple, no stridor. [] Cardiovascular:Heart rate regular rhythm, no murmur [] Lungs & Thorax: Bilateral breath sounds clear to auscultation [] Abdomen: Bowel sounds normal, soft, no tenderness, no masses, no pulsatile masses. [] Skin: Warm, dry, no erythema, no rash. [] Extremitiesno edema. [] Neurologic: Alert and oriented X 3, no focal deficits noted. [] Psychologic: Affect normal, judgement normal, mood normal. [] Current Patient Data Vital Signs Vital Signs Date Time Temp Pulse Resp B/P (MAP) Pulse Ox O2 Delivery O2 Flow Rate FiO2 09/16/18 12:02 60 131/66 (87) Room Air 09/16/18 11:47 16 98 09/16/18 10:32 98.6 98.6 Lab Values Laboratory Tests Test 09/16/18 10:32 09/16/18 11:25 Urine Collection Type Unknown Urine Color Yellow Urine Clarity Clear Urine pH 6.5 Urine Specific [place] <=1.005 Urine Protein Negative mg/dL (NEG-TRACE) Urine Glucose (UA) Negative mg/dL (NEG) Urine Ketones (Stick) Negative mg/dL (NEG) Urine Blood Negative (NEG) Urine Nitrite Negative (NEG) Urine Bilirubin Negative (NEG) Urine Urobilinogen Dipstick 0.2 mg/dL (0.2 mg/dL) Urine Leukocyte Esterase Negative (NEG) Urine RBC Rare /HPF (0-2) Urine WBC Occ /HPF (0-4) Urine Squamous Epithelial Cells Few /LPF Urine Bacteria Few /HPF (0-FEW) Urine Test Negative (NEG) White Blood Count 6.4 x10^3/uL (4.0-11.0) Red Blood Count 4.77 x10^6/uL (3.50-5.40) Hemoglobin 14.1 g/dL (12.0-15.5) Hematocrit 42.7 % (36.0-47.0) Mean Corpuscular Volume 89 fL (79-100) Mean Corpuscular Hemoglobin 30 pg (25-35) Mean Corpuscular Hemoglobin Concent 33 g/dL (31-37) Red Cell Distribution Width 14.6 % (11.5-14.5) H Platelet Count 226 x10^3/uL (140-400) Neutrophils (%) (Auto) 85 % (31-73) H Lymphocytes (%) (Auto) 7 % (24-48) L Monocytes (%) (Auto) 8 % (0-9) Eosinophils (%) (Auto) 0 % (0-3) Basophils (%) (Auto) 0 % (0-3) Neutrophils # (Auto) 5.5 x10^3uL (1.8-7.7) Lymphocytes # (Auto) 0.4 x10^3/uL (1.0-4.8) L Monocytes # (Auto) 0.5 x10^3/uL (0.0-1.1) Eosinophils # (Auto) 0.0 x10^3/uL (0.0-0.7) Basophils # (Auto) 0.0 x10^3/uL (0.0-0.2) Platelet Estimate Pending Sodium Level 139 mmol/L (136-145) Potassium Level 3.6 mmol/L (3.5-5.1) Chloride Level 102 mmol/L (98-107) Carbon Dioxide Level 23 mmol/L (21-32) Anion Gap 14 (6-14) Blood Urea Nitrogen 3 mg/dL (7-20) L Creatinine 0.8 mg/dL (0.6-1.0) Estimated GFR (Cockcroft-Gault) 78.3 BUN/Creatinine Ratio 4 (6-20) L Glucose Level 109 mg/dL (70-99) H Calcium Level 9.3 mg/dL (8.5-10.1) Total Bilirubin 0.5 mg/dL (0.2-1.0) Aspartate Amino Transferase (AST) 18 U/L (15-37) Alanine Aminotransferase (ALT) 20 U/L (14-59) Alkaline Phosphatase 85 U/L (46-116) Total Protein 7.7 g/dL (6.4-8.2) Albumin 4.0 g/dL (3.4-5.0) Albumin/Globulin Ratio 1.1 (1.0-1.7) Lipase 54 U/L (73-393) L Laboratory Tests 09/16/18 11:25 Laboratory Tests 09/16/18 11:25 EKG EKG [] Radiology/Procedures Radiology/Procedures CT ABD/pelvis IMPRESSION: There is wall thickening of the sigmoid colon and descending colon. This may be due to incomplete distention but may be seen with colitis if there are clinical findings of such. This has been seen previously on the study of November 08, 2017 but the transverse colon wall thickening seen previously has resolved. Wall thickening of the antrum of the stomach. This may be secondary to incomplete distention but could be seen with gastritis or peptic ulcer disease. No free air or free fluid is evident. Electronically signed by: Robson Miramontes MD (09/16/2018 12:22 PM) [id number][] Course & Med Decision Making Course & Med Decision Making Pertinent Labs and Imaging studies reviewed. (See chart for details) []12:52 symptoms improved. Tolerating PO. CT as above with question of colitis but possible due to bowel distention. Patient does not have any focal tenderness of her transverse colon. Patient does not have any elevation in her white count. This does not seem to correlate clinically. CT of her abdomen pelvis otherwise with no acute findings. Labs and imaging discussed at length with patient. There does not seem to be indication of acute life-threatening pathology at this time. Will provide Rx for Zofran. Advised patient to establish care with primary care physician to have continued outpatient management given her complicated history. ER return precautions given. Patient verbalized understanding. All questions answered. Dragon Disclaimer Taniya Disclaimer This electronic medical record was generated, in whole or in part, using a voice recognition dictation system. Departure Departure Impression: Primary Impression: Abdominal pain Additional Impressions: Chronic abdominal pain Nausea and vomiting Disposition: HOME, SELF-CARE Condition: STABLE Referrals: NO PCP (PCP) Patient Instructions: Nausea and Vomiting Additional Instructions: Thank you for coming to [facility]. Please read the attached handouts. Please follow-up with your primary care physician. Return to the ER if your symptoms worsen or you have any other concerns. Scripts Ondansetron Hcl (ZOFRAN) 4 Mg Tablet 4 MG PO PRN TID PRN for NAUSEA/VOMITING, #15 nausea/vomiting Prov: DERECK ROBERTSON DO 09/16/18 Problem Qualifiers DERECK ROBERTSON DO Sep 16, 2018 12:55
[2018-09-16 13:02] VITALS: BP 155/83
[2018-09-16] MEDS: HYDROcodone/APAP 5/325MG 1 TAB TABLET PO ONE (13:20)
[2018-09-16 14:18] LABS: % LYMPHS 3 % (24-48); % MONOS 2 % (0-10); % SEGS 95 % (35-66); PLT ESTIMATE ADEQUATE (ADEQUATE)
== END 2018-09-16 13:22 | disposition home or self-care (01) ==
LOC: ER 10:22
DX: G89.29 Other chronic pain (principal); R10.84 Generalized abdominal pain; R11.2 Nausea with vomiting, unspecified; K21.9 Gastro-esophageal reflux disease without esophagitis; G43.909 Migraine, unspecified, not intractable, without status migrainosus; Z90.89 Acquired absence of other organs; Z90.49 Acquired absence of other specified parts of digestive tract; Z98.84 Bariatric surgery status; Z98.890 Other specified postprocedural states; Z88.5 Allergy status to narcotic agent; Z88.8 Allergy status to other drugs, medicaments and biological substances
CPT/HCPCS: 36415; 74177; 80053; 81001; 81025; 83690; 85007; 85025; 96374; 96375; 99284; J2405; J3010; J7030; Q9967

== ENCOUNTER 2019-03-17 16:02 | Emergency (ER) | payer MEDICARE ==
[~2019-03-17] VITALS: Ht 172.7 cm; Wt 57.6 kg
[~2019-03-17 16:02] MED LIST changes: -PANT40TA3 PO; +PANT40TA77 PO
--- NOTE | 2019-03-17 16:53 | PHYS DOC ---
Past Medical History Past Medical History: Depression, Diverticulosis, GERD, GI Bleed, Migraines, P.U.D., Other Additional Past Medical Histor: chronic abd pain, accidental overdose, bacillus infection Past Surgical History: Appendectomy, Cholecystectomy, Gastric Bypass, Other Additional Past Surgical Histo: hernia, ovarian cyst, low body lift, 3 abd laps, 2 peg tubes,reversal, PORT Alcohol Use: None Drug Use: Marijuana Adult General Chief Complaint Chief Complaint: ABDOMINAL PAIN HPI HPI Patient is a 42 year old female that presents with epigastric pain, diarrhea, nausea, vomiting this been ongoing for several weeks. The patient states she has a history of chronic abdominal pain. The patient has made appointments 7 times with the GI doctor and states she has not kept A single one of them due to transportation issues. The patient states that she smokes marijuana, and states that hot showers make her feel better. States it hurts after she eats food. Rates her pain a 7 out of 10 in severity and sharp. Denies any medications prior to arrival. States that she has had her appendix and gallbladder removed. Also had a gastric bypass. Review of Systems Review of Systems Constitutional: Denies fever or chills [] Eyes: Denies change in visual acuity, redness, or eye pain [] HENT: Denies nasal congestion or sore throat [] Respiratory: Denies cough or shortness of breath [] Cardiovascular: No additional information not addressed in HPI [] GI: Reports epigastric abdominal pain, nausea, vomiting, and diarrhea [] : Denies dysuria or hematuria [] Musculoskeletal: Denies back pain or joint pain [] Integument: Denies rash or skin lesions [] Neurologic: Denies headache, focal weakness or sensory changes [] Endocrine: Denies polyuria or polydipsia [] Complete systems were reviewed and found to be within normal limits, except as documented in this note. Current Medications Current Medications Current Medications Medications (Trade) Dose Ordered Sig/Ben Start Time Stop Time Status Last Admin Dose Admin Acetaminophen (Tylenol) 1,000 mg 1X ONCE 03/17/19 17:00 03/17/19 17:03 DC Multi-Ingredient Mouthwash/Gargle (Gi Cocktail) 20 ml 1X ONCE 03/17/19 17:00 03/17/19 17:01 DC 03/17/19 16:51 20 ML Ondansetron HCl (Zofran) 4 mg 1X ONCE 03/17/19 17:00 03/17/19 17:03 DC 03/17/19 17:42 4 MG Sodium Chloride 500 ml @ 500 mls/hr 1X ONCE 03/17/19 17:00 03/17/19 17:59 DC 03/17/19 17:45 500 MLS/HR Allergies Allergies Allergies Coded Allergies Type Severity Reaction Last Updated Verified diphenhydramine Allergy Severe hallucinations/ams 09/03/17 Yes promethazine Allergy Severe confusion/ams 09/03/17 Yes sumatriptan Allergy Severe ANAPHYLAXIS 09/03/17 Yes haloperidol Allergy Intermediate 09/03/17 Yes morphine Allergy Intermediate HIVES 09/03/17 Yes NSAIDS (Non-Steroidal Anti-Inflamma Adverse Reaction Severe bleeding. 09/03/17 Yes metoclopramide Adverse Reaction Intermediate 09/03/17 Yes prochlorperazine Adverse Reaction Intermediate 09/03/17 Yes Physical Exam Physical Exam Constitutional: Well developed, well nourished, no acute distress, non-toxic appearance. [] HENT: Normocephalic, atraumatic, bilateral external ears normal, oropharynx moist, no oral exudates, nose normal. [] Eyes: PERRLA, EOMI, conjunctiva normal, no discharge. [] Neck: Normal range of motion, no tenderness, supple, no stridor. [] Cardiovascular:Heart rate regular rhythm, no murmur [] Lungs & Thorax: Bilateral breath sounds clear to auscultation [] Abdomen: Bowel sounds normal, soft, diffuse tenderness, no masses, no pulsatile masses. [] Skin: Warm, dry, no erythema, no rash. [] Back: No tenderness, no CVA tenderness. [] Extremities: No tenderness, no cyanosis, no clubbing, ROM intact, no edema. [] Neurologic: Alert and oriented X 3, normal motor function, normal sensory function, no focal deficits noted. [] Psychologic: Affect normal, judgement normal, mood normal. [] Current Patient Data Vital Signs Vital Signs Date Time Temp Pulse Resp B/P (MAP) Pulse Ox O2 Delivery O2 Flow Rate FiO2 03/17/19 16:30 98.8 89 18 122/76 (91) 95 Room Air 98.8 Lab Values Laboratory Tests Test 03/17/19 16:55 White Blood Count 7.3 x10^3/uL (4.0-11.0) Red Blood Count 4.41 x10^6/uL (3.50-5.40) Hemoglobin 14.1 g/dL (12.0-15.5) Hematocrit 41.2 % (36.0-47.0) Mean Corpuscular Volume 94 fL (79-100) Mean Corpuscular Hemoglobin 32 pg (25-35) Mean Corpuscular Hemoglobin Concent 34 g/dL (31-37) Red Cell Distribution Width 13.2 % (11.5-14.5) Platelet Count 306 x10^3/uL (140-400) Neutrophils (%) (Auto) 69 % (31-73) Lymphocytes (%) (Auto) 22 % (24-48) L Monocytes (%) (Auto) 7 % (0-9) Eosinophils (%) (Auto) 1 % (0-3) Basophils (%) (Auto) 1 % (0-3) Neutrophils # (Auto) 5.0 x10^3/uL (1.8-7.7) Lymphocytes # (Auto) 1.6 x10^3/uL (1.0-4.8) Monocytes # (Auto) 0.5 x10^3/uL (0.0-1.1) Eosinophils # (Auto) 0.0 x10^3/uL (0.0-0.7) Basophils # (Auto) 0.1 x10^3/uL (0.0-0.2) Sodium Level 139 mmol/L (136-145) Potassium Level 3.6 mmol/L (3.5-5.1) Chloride Level 101 mmol/L (98-107) Carbon Dioxide Level 25 mmol/L (21-32) Anion Gap 13 (6-14) Blood Urea Nitrogen 8 mg/dL (7-20) Creatinine 0.8 mg/dL (0.6-1.0) Estimated GFR (Cockcroft-Gault) 78.3 BUN/Creatinine Ratio 10 (6-20) Glucose Level 95 mg/dL (70-99) Calcium Level 9.2 mg/dL (8.5-10.1) Total Bilirubin 0.5 mg/dL (0.2-1.0) Aspartate Amino Transferase (AST) 14 U/L (15-37) L Alanine Aminotransferase (ALT) 16 U/L (14-59) Alkaline Phosphatase 85 U/L (46-116) Total Protein 7.7 g/dL (6.4-8.2) Albumin 4.1 g/dL (3.4-5.0) Albumin/Globulin Ratio 1.1 (1.0-1.7) Lipase 58 U/L (73-393) L Laboratory Tests 03/17/19 16:55 Laboratory Tests 03/17/19 16:55 EKG EKG [] Radiology/Procedures Radiology/Procedures [] Course & Med Decision Making Course & Med Decision Making Pertinent Labs and Imaging studies reviewed. (See chart for details) Appears to have from history gastritis and cannaboid hyperemesis syndrome. Will get labs, and give GI cocktail. Will also give Tylenol and fluids. Her overdose risk score on KTRACs in 600. Patient asked multiple times for narcotics. Discussed score with her and that she needs to follow up with primary care for pain management. Discussed that I did not feel comfortable prescribing or giving her narcotics. Patient continued to ask multiple times. Labs are unremarkable. The patient refuses to give urine. Will d/c home to follow up with GI. Symptoms are likely due to gastritis and cannaboid hyperemesis syndrome. Discussed with patient the need to stop using cannabis. Dragon Disclaimer Dragon Disclaimer This electronic medical record was generated, in whole or in part, using a voice recognition dictation system. Departure Departure Impression: Primary Impression: Cannabinoid hyperemesis syndrome Additional Impressions: Abdominal pain Drug-seeking behavior Disposition: 01 HOME, SELF-CARE Condition: STABLE Referrals: NO PCP (PCP) LEONEL BEAN MD Patient Instructions: Abdominal Pain (Nonspecific) Additional Instructions: Thank you for visiting [facility]. We appreciate you trusting us with your care. If any additional problems come up don't hesitate to return to visit us. Please follow up with your primary care provider so they can plan additional care if needed and know about the problem that you had. If symptoms worsen come back to the Emergency Department. Any concerning symptoms that start such as chest pain, shortness of air, weakness or numbness on one side of the body, running high fevers or any other concerning symptoms return to the ER. Follow-up with primary care doctor, and GI doctor. Stop smoking marijuana. Scripts Ondansetron (ONDANSETRON ODT) 4 Mg Tab.rapdis 1 TAB PO PRN Q6-8HRS PRN for NAUSEA, #16 TAB Prov: RAJEEV PALMA APRN 03/17/19 Problem Qualifiers Additional Impressions: Abdominal pain Abdominal location: unspecified location Qualified Codes: R10.9 - Unspecified abdominal pain RAJEEV PALMA APRN Mar 17, 2019 16:53
[2019-03-17] MEDS ORDERED: LIDO:MAALOX 1:1 20 ML SINGLE DOSE. SWSW ONE (17:00)
[2019-03-17] MEDS ORDERED: ACETAMINOPHEN 500 MG TABLET PO ONE (17:00)
[2019-03-17] MEDS ORDERED: IV NORMAL SALINE 500ML BAG 500 ML IV ONE (17:00)
[2019-03-17] MEDS ORDERED: ONDANSETRON PF 4 MG/2 ML VIAL. IV ONE (17:00)
[2019-03-17 17:02] LABS: BASO # 0.1 x10^3/uL (0.0-0.2); BASO % 1 % (0-3); EOS % 1 % (0-3); HEMATOCRIT 41.2 % (36.0-47.0); HEMOGLOBIN 14.1 g/dL (12.0-15.5); LYMPH # 1.6 x10^3/uL (1.0-4.8); LYMPH % 22 % (24-48); MEAN CORPUSCULAR HEMOGLOBIN 32 pg (25-35); MEAN CORPUSCULAR HGB CONC 34 g/dL (31-37); MEAN CORPUSCULAR VOLUME 94 fL (79-100); MONO # 0.5 x10^3/uL (0.0-1.1); MONO % 7 % (0-9); NEUT % 69 % (31-73); PLATELET COUNT 306 x10^3/uL (140-400); RED BLOOD COUNT 4.41 x10^6/uL (3.50-5.40); RED CELL DISTRIBUTION WIDTH 13.2 % (11.5-14.5); WHITE BLOOD COUNT 7.3 x10^3/uL (4.0-11.0)
[2019-03-17 17:03] VITALS: BP 171/74
[2019-03-17 17:16] LABS: CALCIUM 9.2 mg/dL (8.5-10.1); CREATININE 0.8 mg/dL (0.6-1.0); GFR 78.3; POTASSIUM 3.6 mmol/L (3.5-5.1)
[2019-03-17 17:20] LABS: ALBUMIN 4.1 g/dL (3.4-5.0); ALBUMIN/GLOBULIN RATIO 1.1 (1.0-1.7); TOTAL BILIRUBIN 0.5 mg/dL (0.2-1.0); TOTAL PROTEIN 7.7 g/dL (6.4-8.2)
[2019-03-17] MEDS ORDERED: ONDA4TAB12 PO (18:14)
== END 2019-03-17 18:18 | disposition home or self-care (01) ==
LOC: ER 16:02
DX: F12.288 Cannabis dependence with other cannabis-induced disorder (principal); R11.2 Nausea with vomiting, unspecified; G89.29 Other chronic pain; R10.13 Epigastric pain; R19.7 Diarrhea, unspecified; Z76.5 Malingerer [conscious simulation]; F32.9 Major depressive disorder, single episode, unspecified; K21.9 Gastro-esophageal reflux disease without esophagitis; G43.909 Migraine, unspecified, not intractable, without status migrainosus; Z90.89 Acquired absence of other organs; Z90.49 Acquired absence of other specified parts of digestive tract; Z88.8 Allergy status to other drugs, medicaments and biological substances; Z88.5 Allergy status to narcotic agent
CPT/HCPCS: 36415; 80053; 83690; 85025; 96361; 96374; 99284; J2405; J7040